=== PATIENT | female | born 1960 | race African-American/Black ===

== ENCOUNTER 2025-02-06 14:24 | Emergency (ER) | payer OTHER, SELFPAY ==
--- NOTE | ~2025-02-06 | CT_ITS ---
CLINICAL HISTORY: diffusely tender left side of abdomen CT ABDOMEN AND PELVIS WITH CONTRAST Comparison: None Findings: There are multiple small pulmonary cysts. No basilar consolidation or pleural effusion. Small hiatal hernia. No acute abnormalities in the solid organs. No urolithiasis. The gallbladder is contracted. Normal caliber abdominal aorta. No bowel obstruction, pneumoperitoneum, or pneumatosis. There are multiple descending and sigmoid colon diverticula. There is mucosal and paracolic edema in the mid to distal descending colon. No free or loculated fluid collection. [id number] colonic stool burden. Nonspecific small bowel feces. Uterine configuration is most suggestive of multiple fibroids. There is a 1.7 cm cystic lesion in the right adnexa that is likely ovarian in etiology. The appendix is identified. No acute appendicitis. The bones are intact. IMPRESSION: 1. Acute diverticulitis in the mid to distal descending colon with no evidence for perforation or abscess. 2. No obstructive or acute inflammatory changes in the genitourinary tract. 3. Probable fibroid uterus. This document has been electronically signed by: Amisha Curtis DO on 02/06/2025 17:18:03
[2025-02-06 14:37] VITALS: BP 118/84; BP 136/78; PULSE 64; PULSE 78; RESP 16; TEMP 36.6; O2SAT 96; O2SAT 98; BMI 29.7
[2025-02-06 15:01] LABS: MANUAL DIFF FLAG NO
[2025-02-06 15:02] LABS: Basophils Percent Auto 0.4 % (0-2); Eosinophils Absolute Auto 0.1 X10*3/uL (0.0-0.4); Eosinophils Percent Auto 1.2 % (0-4); Hematocrit 37.8 % (37.0-47.0); Hemoglobin 12.9 g/dl (12.0-16.0); Imm Gran Abs Auto 0.02 X10*3/uL (0.00-0.03); Imm Gran Pct Auto 0.2 % (0.0-0.4); Lymphocytes Absolute Auto 2.8 X10*3/uL (1.2-4.9); Lymphocytes Percent Auto 34.5 % (20-40); Mean Corpuscular HGB Conc 34.1 g/dl (31.0-35.0); Mean Corpuscular Hemoglobin 30.6 pg (27.0-33.0); Mean Corpuscular Volume 89.6 fL (80.0-98.0); Mean Platelet Volume 9.4 fL (9.4-12.3); Monocytes Absolute Auto 0.9 X10*3/uL (0.1-1.2); Monocytes Percent Auto 10.7 % (2-11); Neutrophils Absolute Auto 4.4 x10*3/uL (2.0-8.3); Platelet Count 256 X10*3/uL (160-400); Red Blood Count 4.22 X10*6/uL (4.20-5.50); Red Cell Distribution Width 13.2 % (11.0-16.0); White Blood Count 8.2 X10*3/uL (4.8-10.8)
[2025-02-06 15:06] LABS: Appearance Urine Clear; Color Urine Yellow; Glucose Urine UA Negative (Negative); Leukocyte Esterase Urine Small (1+) (Negative); Nitrite Urine Negative (Negative); PH 6.5 (5.0-9.0); UMIC TRIGGER UACC YES; Urine Blood Negative (Negative); Urine Ketones Trace mg/dL (Negative); Urine Protein Negative (Neg-Trace)
[2025-02-06 15:27] LABS: Alanine Aminotransferase 25 U/L (0-31); Albumin Level 4.1 g/dL (3.5-5.0); Alkaline Phosphatase 48 U/L (39-117); Anion Gap 11 (12-20); Aspartate Amino Transferase 28 U/L (5-31); Bilirubin Total 0.8 mg/dL (0.0-1.0); Blood Urea Nitrogen 16 mg/dL (9-16); Calcium 9.4 mg/dL (8.4-10.2); Carbon Dioxide 26 mmol/L (22-29); Chloride 106 mmol/L (96-108); Creatinine Clr Calc Pharmacy 64.4; Estimated Glomerular Filt Rate > 60; Glucose Random 81 mg/dL (60-115); Sodium 139 mmol/L (135-145); Total Protein 7.6 g/dL (6.5-8.0)
[2025-02-06 15:31] LABS: Bacteria Urine None Seen (None Seen); Hyaline Casts Urine 0-2 /LPF (0-2); RBC Urine 0-2 /HPF (0-2); Squamous Epithelial Cell Urine 0-2 /HPF (0-2); UACC Culture Trigger YES; WBC Urine 0-5 /HPF (0-5)
--- NOTE | 2025-02-06 15:47 | ED_ITS ---
HPI - Abdominal Pain General Chief Complaint: Abdominal Pain Stated Complaint: ZENAIDA FLANK/BACK PAIN,URGENT CARE PER EMS Time Seen by Provider: 02/06/25 15:25 Source: patient, EMS, RN notes reviewed and old records reviewed Mode of arrival: EMS Limitations: no limitations History of Present Illness ED Provider: Christiane Hernandes PA-C HPI narrative: Patient has sought medical attention in the emergency department today for evaluation of abdominal discomfort. Onset was approximately around 10:00 yesterday she was just sitting down she states it started off as feeling like menstrual cramps like she used to have but without any menses. Approximately 2 hours later pain became much more intense and was located on bilateral lower quadrants. This lasted for approximately 4 hours until it only stayed on the left side. Has been constant since this time weaning with severity especially worse with trying to change positions or moving. She has tried Tylenol for the time and it has only done it intermittently but not all the time. Patient has history of a gastric ulcer several years before in the past and was always been afraid to take NSAIDs again since that time. She is denying any dysuria urgency or frequency has no flank pain. She has no vaginal symptoms denies feeling nauseous and has no vomiting. She had a little bit of a sandwich earlier did not increase pain but also did not make it better. She denies any falls or trauma or pain radiating to her lower legs. No fevers no chills no respiratory symptoms. She has been voiding regularly and denies any increased thirst. Pain is a 6/10 at this time she has not felt pain like this before in the past. Last bowel movement was earlier today she states it was normal she did not notice any blood in it did not make any difference for her abdominal discomfort. She states it feels like it goes from the front of her pelvis rate into the mid back sacrum area. Patient has a history of ongoing back pathology she had an MRI 2 weeks ago she saw a orthopedist who referred her to physical therapy she was supposed to go today but due to her pain she was not able to so came here instead. MRI of the lumbar spine showed degenerative changes only according to patient. Pain Consistency: constant Location: LLQ Severity: severe Quality: cramping, aching and sharp Exacerbating factors: movement Associated symptoms: denies other symptoms Treatments prior to arrival: other (tylenol no change) Related Data Previous Rx's ?Medication ?Instructions ?Recorded ciprofloxacin HCl 750 mg tablet 750 mg PO BID 7 days #14 tabs 02/06/25 metronidazole 500 mg tablet 500 mg PO TID 7 days #21 tabs 02/06/25 Allergies Allergy/AdvReac Type Severity Reaction Status Date / Time Penicillins Allergy Unknown Verified 02/06/25 14:40 Physical Exam ED Vital Signs: Vital Signs - 24 hr 02/06/25 14:37 Temperature 97.8 F Pulse Rate 64 Respiratory Rate 16 Blood Pressure 136/78 Pulse Oximetry 96 Oxygen Delivery Method Room Air BMI result Body Mass Index 29.7 Const General: cooperative, healthy appearing, comfortable, no acute distress and well developed Nutritional Appearance: well nourished and obese Orientation/consciousness: patient oriented x3 Limitations: no limitations HENMT Head: Yes normal to inspection Ears: hearing grossly normal bilaterally General nose exam: Normal external nose present Face and sinus: Yes normal facial exam Mouth: Normal oral and palatal mucosa present, lip normal, tongue normal, oropharynx normal and moist mucous membranes Throat: Yes posterior oropharynx normal Eyes Periorbital: periorbital findings normal Eyelids: Yes eyelids normal Conjunctivae: conjunctivae normal Sclerae: sclerae normal Corneas: corneas normal Neck Neck: Yes full ROM Resp Effort & Inspection: normal respiratory effort and able to speak in complete sentences Auscultation: clear to auscultation bilaterally Cardio Jugular venous distension: no JVD Rate: regular rate Rhythm: regular rhythm GI Inspection: Yes distended (obese lower abdomen slightly distended but not firm) Palpation (GI): Soft to palpation and Tenderness to palpation present (GI) in the LLQ, obturator sign positive (negative) and psoas sign positive (positive) Auscultation: normal bowel sounds Rectal Exam - Female: deferred General: Yes no CVA tenderness Back/Spine/Pelvis Back: no CVA tenderness Skin General skin exam: no rashes or lesions noted Rashes: no rashes Wounds: no wounds Neuro General: patient oriented x3 Extrem General: Yes normal to inspection Medical Decision Making Medical Decision Making MDM Narrative: Well appearing patient presenting to ED for evaluation of lower abdominal pain since yesterday. Intermittent nausea but not for several days. Abd labs and imaging was obtained due to LLQ being tender. No guarding, pain is controlled at this time and no urinary complaints. Vitals reassuring, no fevers. Abd labs reassuring; no leukocytosis or kidney dysfunction. CT scan with evidence of diverticulitis without perforation. No hepatobiliary diseaes. CRP elevated but expected in setting of CT findings. Patient has diverticulitis that is amenable to oral antibiotics. Discussed was had in regards to mild cases sometimes going on fluid diet only and no abx. At this is first occurence, will prescribed abx. 'Severe' PCN allergy- would have considered Aug alone. Patient has no signs of perforation. Patient?s symptoms not typical for other emergent causes of abdominal pain such as, but not limited to, appendicitis, abdominal aortic aneurysm, surgical biliary disease, acute coronary syndrome. Patient will be discharged with strict return precautions and follow up with primary MD within 12-24 hours for further evaluation. Patient understands that they may require admission and IV antibiotics and possibly surgery if they do not improve with oral antibiotics. Differential Diagnosis Differential Diagnoses: The differential diagnosis associated with the presentation includes See above Admission/Observation Consideration of admission/observation: Escalation of care including admission/observation considered Patient would have been admitted to the hospital had her work up and clinical presentation had any findings where hospital admission was warranted. Lab Data MDM Lab Attestation statement: I reviewed the patient's lab results. see above 02/06/25 14:53 02/06/25 14:53 Labs: Lab Results 02/06/25 02/06/25 Range/Units 14:53 Unknown WBC 8.2 (4.8-10.8) X10*3/uL RBC 4.22 (4.20-5.50) X10*6/uL Hgb 12.9 (12.0-16.0) g/dl Hct 37.8 (37.0-47.0) % MCV 89.6 (80.0-98.0) fL MCH 30.6 (27.0-33.0) pg MCHC 34.1 (31.0-35.0) g/dl RDW 13.2 (11.0-16.0) % Plt Count 256 (160-400) X10*3/uL MPV 9.4 (9.4-12.3) fL Immature Gran % (Auto) 0.2 (0.0-0.4) % Neut % (Auto) 53.0 (45-73) % Lymph % (Auto) 34.5 (20-40) % Andrew % (Auto) 10.7 (2-11) % Eos % (Auto) 1.2 (0-4) % Baso % (Auto) 0.4 (0-2) % Lymph # (Auto) 2.8 (1.2-4.9) X10*3/uL Andrew # (Auto) 0.9 (0.1-1.2) X10*3/uL Eos # (Auto) 0.1 (0.0-0.4) X10*3/uL Baso # (Auto) 0.0 (0.0-0.2) X10*3/uL Abs Immat Gran (auto) 0.02 (0.00-0.03) X10*3/uL Absolute Neuts (auto) 4.4 (2.0-8.3) x10*3/uL Absolute Nucleated RBC 0.000 (0.0-0.012) X10*3/uL Nucleated RBC % (auto) 0.0 (0.0-0.2) /100WBC ESR Cancelled Sodium 139 (135-145) mmol/L Potassium 4.0 (3.3-5.1) mmol/L Chloride 106 (96-108) mmol/L Carbon Dioxide 26 (22-29) mmol/L Anion Gap 11 L (12-20) BUN 16 (9-16) mg/dL Creatinine 0.87 (0.5-1.4) mg/dL Estim Creat Clear Calc 64.4 Estimated GFR > 60 Random Glucose 81 (60-115) mg/dL Calcium 9.4 (8.4-10.2) mg/dL Total Bilirubin 0.8 (0.0-1.0) mg/dL AST 28 (5-31) U/L ALT 25 (0-31) U/L Alkaline Phosphatase 48 (39-117) U/L C-Reactive Protein 3.17 H (< or = 0.50) mg/dL Total Protein 7.6 (6.5-8.0) g/dL Albumin 4.1 (3.5-5.0) g/dL Lipase 36 (8-78) U/L Urine Color Yellow Urine Appearance Clear Urine pH 6.5 (5.0-9.0) Ur Specific [place] 1.020 (1.005-1.025) Urine Protein Negative (Neg-Trace) mg/dL Urine Glucose (UA) Negative (Negative) mg/dL Urine Ketones Trace (Negative) mg/dL Urine Blood Negative (Negative) Urine Nitrite Negative (Negative) Ur Leukocyte Esterase Small (1+) H (Negative) Urine RBC 0-2 (0-2) /HPF Urine WBC 0-5 (0-5) /HPF Ur Squamous Epith Cells 0-2 (0-2) /HPF Urine Bacteria None Seen (None Seen) Hyaline Casts 0-2 (0-2) /LPF Independent Interpretation I performed an independent interpretation of an: CT Scan Interpretation: see above Independent Historian Clinical information obtained from an independent historian. History obtained from or confirmed by: Spouse and Other (daughter in room) Tests considered The following testing was considered but not selected: Pelvic Ultrasound but no vaginal sxs or ovarian tenderness concerning for ovarian torsion Prescription Management I considered prescription management with: Pain Medication and Antibiotic Medications Administered Discontinued Medications Generic Name Dose Route Start Last Admin Trade Name Freq PRN Reason Stop Dose Admin Iohexol 100 ml 02/06/25 16:37 02/06/25 16:37 Iohexol 350 Mg/Ml 100 Ml Infus..Btl IV 02/06/25 16:38 85 ml ONCE ONE Administration Morphine Sulfate 1 mg 02/06/25 15:45 02/06/25 18:14 Morphine Sulfate 2 Mg/Ml Cartridge IM 02/06/25 15:46 Not Given ONCE ONE Protocol Discharge Plan Discharge Clinical Impression: Diverticulitis Patient Disposition: Home, Self-Care Instructions: Diverticulitis (ED), Colectomy Diet (ED) Additional Instructions: CT exam with evidence of diverticulitis, this will be treated with antibiotics. Your case is mild. There is evidence other suggest that mild cases can be treated with a liquid diet only and no antibiotics or rales he has never been treated for this before we will initiate antibiotics and recommend General surgery follow-up Be sure to finish the full course. Take probiotics with antibiotics. Probiotics have been shown to reduce antibiotic associated diarrhea and other complications. There have been studies done on Culturelle and Florastor and these products can be purchased over the counter at the pharmacy. Our infectious disease specialist also recommends [employer] Tono, a liquid yogurt that can be found in any supermarket in the milk department. This Recommendation is for 5 ounces 3 times a day by at least 2 hours from the oral antibiotic dose. Consider clear liquid diet until her symptoms have begun to resolve, this will help to rest your bowel, see attached information. Return the emergency department if you develop worsening symptoms including severe nausea, inability to tolerate anything by mouth, high fever, severe abdominal pain, bright red blood in your stool. Prescriptions: New ciprofloxacin HCl 750 mg tablet 750 mg PO BID 7 Days Qty: 14 0RF metronidazole 500 mg tablet 500 mg PO TID 7 Days Qty: 21 0RF Referrals: Kurtis Lee PA-C [Physician Senior Asic Design Engineer] - 1 week Group,Bubba Gant [Physician] - 1 week Stand Alone Forms: Work/School Release Interventions: ED Discharge Assessment Last Done: 02/06/25 18:19 Discharge Date/Time: 02/06/25 19:01 Print Language: Azeri
[2025-02-06 16:14] LABS: C Reactive Protein 3.17 mg/dL (< or = 0.50); Lipase 36 U/L (8-78)
[2025-02-06] MEDS: iohexoL 350 MG/ML 100 ML INFUS..BTL IV (16:37)
[2025-02-06 16:59] VITALS: BP 140/75; PULSE 81; RESP 18; O2SAT 98
--- OUTSIDE RECORDS SUMMARY | 2025-02-06 17:37 | XMS_ITS | Encounter Summary ---
Author Organization [employer] Address [address] [facility] 7 [place] [address] Care Team Providers Care Hot Roll Laminator Name Role Phone Tamar Tucker Primary Care Provider Tamar Tucker Unavailable [phone] FranksTyra Unavailable [phone] Heather Marrero Unavailable Encounter Details Date Type Department Care Team (Late st Contact Info) Description 10/18/[address] [address] Tamar Tucker FNP [address] [place] [id number] Social History Tobacco Use Types Packs/Day Years Used Date Smoking Tobacco: Never Assessed Comments Unknown Sex and Gender Information Value Date Recorded Sex Assigned at Choose not to disclose 9:05 AM EDT Legal Sex Female 6:21 PM EDT Gender Identity Choose not to disclose 6:21 PM EDT Sexual Orientation Straight 06/28/2024 11 :08 AM EDT documented as of this encounter Plan of Treatment Not on file documented as of this encounter Visit Diagnoses Not on filedocumented in this encounter Care Teams Hot Roll Laminator Relationship Specialty Start Date End Date Tamar Tucker FNP PCP - General Family Medicine 08/26/22 Tamar Tucker FNP Family Medicine 08/26/22 Tyra Franks [address] [place] [address] 07/17/23 07/02/24 Heather Marrero [address] [place] [address] 07/26/23 documented as of this encounter
--- OUTSIDE RECORDS SUMMARY | 2025-02-06 17:37 | XMS_ITS | Data Portability ---
Author Organization [facility], [facility] Address [address] [place] [address] Care Team Providers Care Holter Technician Name Role Phone [facility] Care Provider Assessment No assessment recorded. Plan of Treatment Reminders Order Date Submit Date Provider Last Modified By Organization Details Last Modified Time Details Appointments None recorded. Lab SARS CoV 2 (COVID-19) Ag, QL, IA, upper respiratory specimen 2023 [facility]IN [facility], [address] [place] [address], [phone], 4 13:32:53 rapid flu (A+B) 2023 024 SATIN [facility], [address] [place] [address], [phone], 4 13:32:36 Referral None recorded. Procedures None recorded. Surgeries None recorded. Imaging None recorded. Medication Orders fluticasone propionate 50 mcg/actuati on nasal spray,suspe nsion 2023 024 [facility] [address], [address] [place], [address], 4 13:31:56 Patient TargetsNo targets recorded. Patient InstructionsNo instructions recorded. Reason for Referral None Reported. Results Created Date Observation Date Name Description Value Unit Range Abnormal Flag Note LastModifiedBy Organization Detail LastModifiedTime 12/20/19 24 12/20/2023 rapid flu (A+B) Unknown Analyte negati ve Not Available le yr [address] [place], [address], 12/20/2023 13:17:57 12/20/19 24 12/20/2023 rapid flu (A+B) Unknown Analyte negati ve Not Available [facility] [address] [place], [address], 12/20/2023 13:17:57 12/20/19 24 12/20/2023 rapid flu (A+B) Unknown Analyte yes Not Available [facility] itzel [address] [place], [address], 12/20/2023 13:17:57 12/20/19 24 12/20/2023 SARS CoV 2 (COVI D-19) Ag, QL, IA, upper respi rator y speci men Unknown Analyte negati ve Not Available [facility] [address] [place], [address], 12/20/2023 13:16:05 12/20/19 24 12/20/2023 SARS CoV 2 (COVI D-19) Ag, QL, IA, upper respi rator y speci men Unknown Analyte yes Not Available [facility] itzel [address] [place], [address], 12/20/2023 13:16:05 Result Notes None recorded. Problems Name Problem SNOMED Code Status Onset Date Resolution Date Notes Provider Name and Address Organization Details Recorded Time Hypothyroidism 22686136 Active Hope tinoco, [place] - [facility] 4 13:15:03 Hypercholestero lemia 89734243 Active Hope De La Torre null, [place] - [facility] 4 13:15:11 Problem Notes None recorded. Medical Equipment None Reported. Allergies No known drug allergies Medications Name Sig Start Date Stop Date Status Note LastModified by Organization Details LastModified Time atorvastatin 20 mg tablet TAKE 1 TABLET BY MOUTH ONCE DAILY active Not Available Not Available No t Available sulfamethoxa zole 800 mg-trimethop rim 160 mg tablet TAKE 1 TABLET BY MOUTH TWICE DAILY FOR 5 DAYS active Not Available Not Available No t Available fluticasone propionate 50 mcg/actuatio n nasal spray,suspen wilbur Ravalli 2 sprays every day by intranasal route for 90 days. 2023 active Not Available Not Available Not Avai lable cyclobenzapr ine 5 mg tablet TAKE 1 TABLET BY MOUTH NEEDED IN THE MORNING AT NOON AND AT BEDTIME FOR MUSCLE SPASMS active Not Available Not Available No t Available atorvastatin active Not Available Not Available Not Available levothyroxin e active Not Available Not Available Not Available Vitals Date Recorded Body height Body mass index (BMI) Body weight Body temperature Respiratory rate Oxygen saturation Oxygen saturation in Arterial blood by Pulse oximetry Heart rate Systolic blood pressure Diastolic blood pressure Provider Name and Address Organization Details Last Updated DateTime 162.56 cm 27.5 kg/m2 77853.7 8 g 100.6 [degF] 18 /min 99 % 99 % 81 /min 132 mm[Hg] 84 mm[Hg] Hope Noble [facility] 13:17:51 Social History Question Answer Notes LastModified by Organizat ion Details LastModified Time Tobacco Smoking Status Never Smoker RUI Chavarria [facility] 12/20/2023 13:15:28 What Is Your Level Of Alcohol Consumption? None [email or web address] Information not available 12/20/2023 Have You Had A Flu Shot This Season? Yes [email or web address] Information not available 12/20/2023 What Was The Date Of Your Most Recent Tobacco Screening? 12/20/2023 [email or web address] Information not available 12/20/2023 Do You Use Any Illicit Or Recreational Drugs? No Information not available 12/20/2023 Have You Recently Traveled Abroad? Yes [place]elled To [place] 12/05 [email or web address] Information not available 12/20/2023 Do You Or Have You Ever Used Any Other Forms Of Tobacco Or Nicotine? No [email or web address] Information not available 12/20/2023 Sex: Unknown Functional Status None recorded. Mental Status None recorded. Family History Relationship Description Onset Age of this Age Resolved Age Notes LastModified by Organization Details LastModified Time Father No current problems or disability [email or web address] Not available 12/20 13:15:15 Mother No current problems or disability [email or web address] Not available 12/20 13:15:15 Medical History No medical history recorded. Gynecological History Statement/Question Response Is there any chance of ? No LMP N/A Obstetrics History GPAL:G 0 P 0 0 0 0 Past Encounters Encounter ID Performer Location Encounter Start Date Encounter Closed Date Diagnosis/Indication Diagnosis SNOMED-CT Code Diagnosis ICD10 Code Diagnosis Note [id number] [address] [place] [address] 05/25/2020 19:23:30 05/25/2020 19:56:49 [id number] [address] [place] [address] 07/28/2018 13:24:28 07/28/2018 14:03:46 [id number] RUI Capps [address] [place] [address] 12/20/2023 13:03:41 12/20/2023 13:36:26 Influenza-like illness 31610439 B34.9 Patient presented with symptoms of upper respirator y infection. Advised to drink plenty of fluids, run a cool-mist humidifier in room at night, gargle salt water for sore throat, and get plenty of rest. Patient should avoid over-exert ion and reduce exposure to irritants such as smoke, cold, dry air, and dust.Treat ment currently involves symptomati c relief. Nasal sprays like nasonex and flonase (or generic) as well as neti pot to help clear sinuses Patient may take acetaminop hen or ibuprofen as directed to reduce fever and body aches.Anti histamine and decongesta nt usage was discussed and recommenda tions made.Jeanette fernandez understood these instructio ns and will follow up in the office in 10 days to 2 weeks if symptoms not improving. ER if any shortness of breath/vj st pain or worsening. Thank you for using [facility] today, please feel free to contact our office if you have any questions or concerns. Health Concerns Section Related Observation LastModified by Organization Detai ls LastModified Time None Recorded Concern Status LastModified by Organization Details LastModified Time None Recorded Advance Directives Directive None Recorded Payers Encounter Date Sequence Insurance Name Policy Number Policy Holly Covered Member ID Holly Member ID Guarantor Name 12/20/2023 1 AI [id number] Korina Gramajo [id number] Teresa Gramajo Notes Date Note Type Note Provider Name and Address Organization Details Recorded Time 12/20/2023 text/html 63 y/o female with cough, congestion, low grade fevers for the past 5 days. RUI Capps [address] [place], [address], [place] - [facility] 12/20/2023 13:34:03 OBGyn Episode No OBEpisode recorded.
--- OUTSIDE RECORDS SUMMARY | 2025-02-06 17:37 | XMS_ITS | Encounter Summary ---
Author Organization [employer] Address [address] [facility] [address] [place] [address] Care Team Providers Care Lime Spreader Name Role Phone Tamar Tucker Primary Care Provider [phone] Tamar Tucker Unavailable [phone] Heather Marrero Unavailable Encounter Details Date Type Department Care Team ([facility] st Contact Info) Description 08/15/[address] [address] Tamar Tucker FNP [address] [place] [address] Social History Tobacco Use Types Packs/Day Years Used Date Smoking Tobacco: Never Smokeless Tobacco: Never Alcohol Use Standard Drinks/Week Comments Never 0 (1 standard drink = 0.6 oz pur e alcohol) Depression Answer Date Recorded Patient Health Questionnaire-9 Score 1 10/04/2023 Patient Health Questionnaire-9 Score 1 10/04/2023 Last PHQ-9: Questionnaire Data Not on file 1 12/05/2022 Housing Stability Answer Date Recorded What is your housing situation today? I have berk[place] auguste 10/04/[address] you li ve. Do you have problems with any of the following? No or not working smoke detectors 10/04/2023 Food Insecurity Answer Date Recorded Within the past 12 months, y ou worried that your food would run out before you got money to buy more: Never True 2022 Within the past 12 months,th e food you bought just didn't last and you didn't have enough money to get more: Sometimes True 10/04/2023 Transportation Answer Date Recorded In the past 12 months, has l ack of transportation kept you from medical appts, meetings, work or from getting things needed for daily living? Yes, it has kept me from medical appointments or getting medications. 10/04/2023 Utilities Answer Date Recorded In the past 12 months, has t he electric, gas, oil or water company threatened to shut off services in your home? No 10/04/2023 Depression Answer Date Recorded Patient Health Questionnaire-2 Score 0 10/04/2023 Comments Unknown Sex and Gender Information Value Date Recorded Sex Assigned at Choose not to disclose 9:05 AM EDT Legal Sex Female 6:21 PM EDT Gender Identity Choose not to disclose 6:21 PM EDT Sexual Orientation Straight 06/28/2024 11 :08 AM EDT documented as of this encounter Miscellaneous Notes * Telephone Encounter - Becki Forman - 08/16/2024 7:45 AM EDT Orders faxed * Telephone Encounter - Jon Kelly - 08/15/2024 3:32 PM EDT Patient would like her lab orders sent to [facility] if possible so she can have them done closer to where she lives. Her call back number is [phone] documented in this encounter Plan of Treatment Not on file documented as of this encounter Visit Diagnoses Not on filedocumented in this encounter Additional Health Concerns Assessment Noted Time PHQ-9 Depression Total Score: 1 10/04/20 23 2:21 PM EST documented as of this encounter Care Teams Lime Spreader Relationship Specialty Start Date End Date Tamar Tucker FNP PCP - General Family Medicine 08/26/22 Tamar Tucker FNP Family Medicine 08/26/22 Heather Marrero [address] [place] [id number] 07/26/23 documented as of this encounter
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
--- OUTSIDE RECORDS SUMMARY | 2025-02-06 17:37 | XMS_ITS | Encounter Summary ---
Author Organization [employer] Address [address] [facility] [address] 7t [place] [address] Care Team Providers Care Heel Scourer Name Role Phone Tamar Tucker Primary Care Provider [phone] Tamar Tucker Unavailable [phone] Heather Marrero Unavailable Encounter Details Date Type Department Care Team (Late st Contact Info) Description 01/06/[address] [phone] Tamar Tucker FNP [address] [place] [address] [phone] Social History Tobacco Use Types Packs/Day Years [...] encounter Miscellaneous Notes * Telephone Encounter - Shauna Young - 01/06/2025 1:15 PM EDT Task sent from to schedule [facility]UP appt about patients knee. I called Teresa, she states she was already seen by tamar, looks like on 12/18. She doesn't think she needs another appointment right now, as she is trying to get an MRI done but she is battling with her insurance company because they will not pay for it. She is going to call her insurance company once more to get more information and will call me back. I did advise that in the mean time we can schedule another follow up appointment with SB to discuss further treatment plan but she said she wants to speak to her social insurance adviser first then will call back with what she would like to do. documented in this encounter Plan of Treatment Not on file documented as of this encounter Visit Diagnoses Not on filedocumented in this encounter Additional Health Concerns Assessment Noted Time PHQ-9 Depression Total Score: 1 10/04/20 23 2:21 PM EST documented as of this encounter Care Teams Heel Scourer Relationship Specialty Start Date End Date Tamar Tucker FNP PCP - General Family Medicine 08/26/22 Tamar Tucker FNP Family Medicine 08/26/22 Heather Marrero [address] [place] [address] 07/26/23 documented as of this encounter
--- OUTSIDE RECORDS SUMMARY | 2025-02-06 17:37 | XMS_ITS | Encounter Summary ---
Author Organization [employer] Address [address] [facility] 7t [place] [address] Care Team Providers Care Hot Stone Setter Name Role Phone Tamar Tucker Primary Care Provider [phone] Tamar Tucker Unavailable [phone] Heather Marrero Unavailable Encounter Details Date Type Department Care Team ([facility] st Contact Info) Description 08/16/[address] [phone] Tamar Tucker FNP [address] [place] [address] Social History Tobacco Use Types Packs/Day [...] Telephone Encounter - Becki Forman - 08/16/2024 3:10 PM EDT Refaxed with MORE signature * Telephone Encounter - Kendra Jenkins - 08/16/2024 11:27 AM EDT Is at [facility] for labs, please have provider melanie the orders and resend as theywere not singed. documented in this encounter Plan of Treatment Not on file documented as of this encounter Visit Diagnoses Not on filedocumented in this encounter Additional Health Concerns Assessment Noted Time PHQ-9 Depression Total Score: 1 10/04/20 23 2:21 PM EST documented as of this encounter Care Teams Hot Stone Setter Relationship Specialty Start Date End Date Tamar Tucker FNP PCP - General Family Medicine 08/26/22 Tamar Tucker FNP Family Medicine 08/26/22 Heather Marrero [address] [place] [address] 07/26/23 documented as of this encounter
--- OUTSIDE RECORDS SUMMARY | 2025-02-06 17:38 | XMS_ITS | Encounter Summary ---
Author Organization [employer] Address [address] [place] [address] 7 [place] [address] Care Team Providers Care Cobbler Apprentice Name Role Phone Tamar Tucker Primary Care Provider [phone] Tamar Tucker Unavailable [phone] Tyra Franks Unavailable [phone] BassamgiovaniHeather Unavailable Encounter Details Date Type Department Care Team (Late st Contact Info) Description 09/20/2022 Abstract [facility] [address] [place] [phone] Audelia Lange, RN [address] [place] [phone] Social History Tobacco Use Types Packs/Day Years [...] on filedocumented in this encounter Care Teams Cobbler Apprentice Relationship Specialty Start Date End Date Tamar Tucker FNP PCP - General Family Medicine 08/26/22 Tamar Tucker FNP Family Medicine 08/26/22 Tyra Franks [address] [place] [address] 07/17/23 07/02/24 Heather Marrero [address] [place] [address] 07/26/23 documented as of this encounter
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
--- OUTSIDE RECORDS SUMMARY | 2025-02-06 17:38 | XMS_ITS | Encounter Summary ---
Author Organization [employer] Address [address] [facility] 7t [place] [address] Care Team Providers Care Rn Patient Services Name Role Phone Tamar Tucker Primary Care Provider [phone] Tamar Tucker Unavailable Heather Marrero Unavailable Encounter Details Date Type Department Care Team ([facility] st Contact Info) Description 11/07/2024 Telephone [facility] [address] [place] [address] Tamar Tucker FNP [address] [place] [address] [phone] Social History Tobacco Use Types Packs/Day Years [...] housing situation today? I have berkley auguste 10/04/[address] you [...] from medical appointments or getting medications. 10/04/2023 Intimate Partner Violence Answer Date R ecorded [...] encounter Miscellaneous Notes * Telephone Encounter - Cathy Bergeron - 11/19/2024 11:09 AM EST See other task for updates. We are still trying to get letter from bar staff * Telephone Encounter - Amy Christopher - 11/07/2024 3:41 PM EST Patient lm on vmail that she would like a call regarding the billing * Telephone Encounter - Cathy Bergeron - 11/07/2024 11:56 AM EST Spoke Les, He said patient has exhausted the $2,000 for PIP, asked him to fax us a letter stating it is exhausted, He wasn't wanting to fax us anything. I spoke to Maria Del Rosario and she is going to give him a call after to ask him to send the letter * Telephone Encounter - Adriana Gomes - 11/07/2024 11:14 AM EST Les is returning a call about patient 2 MRIs [employer] does not auth any tests those have to go through their private ins call Les if you have any other questions [phone] [facility] claim # [id number] documented in this encounter Plan of Treatment Not on file documented as of this encounter Visit Diagnoses Not on filedocumented in this encounter Additional Health Concerns Assessment Noted Time PHQ-9 Depression Total Score: 1 10/04/20 23 2:21 PM EST documented as of this encounter Care Teams Rn Patient Services Relationship Specialty Start Date End Date Tamar Tucker FNP PCP - General Family Medicine 08/26/22 Tamar Tucker FNP Family Medicine 08/26/22 Heather Marrero [address] [place] [phone] 07/26/23 documented as of this encounter
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
[2025-02-06 18:19] VITALS: BP 136/78; PULSE 78; RESP 18; TEMP 36.4; O2SAT 98
== END 2025-02-06 19:01 | disposition home or self-care (01) ==
PROVIDERS: Physician Assistant Medical; Emergency Provider Emergency Medicine Emergency Medical Services
DX: K57.32 Diverticulitis of large intestine without perforation or abscess without bleeding (principal); R10.30 Lower abdominal pain, unspecified; M54.50 Low back pain, unspecified; Z79.899 Other long term (current) drug therapy
CPT/HCPCS: 36415; 74177; 80053; 81001; 81003; 83690; 85025; 86140; 87086; 99284; Q9967

== ENCOUNTER → 2025-02-06 15:45 | Outpatient (BNV) | payer OTHER, SELFPAY | PROVIDERS: Emergency Provider Emergency Medicine Emergency Medical Services; Visit Provider Radiology Diagnostic Radiology | DX: K57.32 Diverticulitis of large intestine without perforation or abscess without bleeding (principal) | CPT/HCPCS: 74177 ==

== ENCOUNTER 2025-02-12 07:46 | Outpatient (AMB) | payer OTHER, SELFPAY ==
--- OUTSIDE RECORDS SUMMARY | 2025-02-12 07:49 | XMS_ITS | Encounter Summary ---
Author Organization [employer] Address [address] [employer] 7t [place] [address] Care Team Providers Care Shift Boss Name Role Phone Tamar Tucker Primary Care Provider [phone] Tamar Tucker Unavailable [phone] Heather Marrero Unavailable Encounter Details Date Type Department Care Team ([facility] Contact Info) Description 08/16/[address] [address] Tamar Tucker FNP [address] [place] [address] Social History Tobacco Use Types Packs/Day [...] 08/16/2024 11:27 AM EDT Is at the [facility] for labs, please have provider melanie the orders and resend as theywere not singed. documented in this encounter Plan of Treatment Not on file documented as of this encounter Visit Diagnoses Not on filedocumented in this encounter Additional Health Concerns Assessment Noted Time PHQ-9 Depression Total Score: 1 10/04/20 23 2:21 PM EST documented as of this encounter Care Teams Shift Boss Relationship Specialty Start Date End Date Tamar Tucker FNP PCP - General Family Medicine 08/26/22 Tamar Tucker FNP Family Medicine 08/26/22 Heather Marrero [address] [place] [address] 07/26/23 documented as of this encounter
--- OUTSIDE RECORDS SUMMARY | 2025-02-12 07:49 | XMS_ITS | Encounter Summary ---
Author Organization [employer] Address [address] [place] [address] 7 [place] [address] Care Team Providers Care Split Leather Department Supervisor Name Role Phone Tamar Tucker Primary Care Provider [phone] Tamar Tucker Unavailable [phone] Tyra Franks Unavailable [phone] BassamgiovaniHeather Unavailable Encounter Details Date Type Department Care Team (Late st Contact Info) Description 09/20/2022 Abstract [facility] [address] [place] [phone] Audelia Lange, RN [address] [place] [address] Social History Tobacco Use Types Packs/Day Years [...] on filedocumented in this encounter Care Teams Split Leather Department Supervisor Relationship Specialty Start Date End Date Tamar Tucker FNP PCP - General Family Medicine 08/26/22 Tamar Tucker FNP Family Medicine 08/26/22 Tyra Franks [address] [place] [address] 07/17/23 07/02/24 Heather Marrero [address] [place] [address] 07/26/23 documented as of this encounter
--- OUTSIDE RECORDS SUMMARY | 2025-02-12 07:49 | XMS_ITS | Encounter Summary ---
Author Organization [employer] Address [address] 7t [place] [address] Care Team Providers Care Ware Tester Name Role Phone Tamar Tucker Primary Care Provider [phone] Tamar Tucker Unavailable [phone] Heather Marrero Unavailable Encounter Details Date Type Department Care Team (Late st Contact Info) Description 01/06/[address] [phone] Tamar Tucker FNP [address] [place] [address] [phone] Social History Tobacco Use Types Packs/Day Years [...] said she wants to speak to her insurance marketing rep first then will call back with what she would like to do. documented in this encounter Plan of Treatment Not on file documented as of this encounter Visit Diagnoses Not on filedocumented in this encounter Additional Health Concerns Assessment Noted Time PHQ-9 Depression Total Score: 1 10/04/20 23 2:21 PM EST documented as of this encounter Care Teams Ware Tester Relationship Specialty Start Date End Date Tamar Tucker FNP PCP - General Family Medicine 08/26/22 Tamar Tucker FNP Family Medicine 08/26/22 Heather Marrero [address] [place] [address] 07/26/23 documented as of this encounter
--- OUTSIDE RECORDS SUMMARY | 2025-02-12 07:49 | XMS_ITS | Clinical Summary ---
Author Organization [employer] Address [address] [facility] 7t [place] [address] Care Team Providers Care Art Therapy Specialist Name Role Phone Tamar Tucker Primary Care Provider [phone] Tamar Tucker Unavailable [phone] Heather Marrero Unavailable Allergies Active Allergy Reactions [...] Encounters Date Type Department Care Team Description 02/11/2025 Patient Outreach [address] [place] [address] Luther King LPN Ed f/u 02/04/[address] [address] Tamar Tucker FNP 01/09/[address] [phone] Tamar Tucker FNP 01/06/[address] [address] Tamar Tucker FNP 01/06/[address] [address] Breanne Saucedo NP 12/18/2024 9:00 AM EST Office Visit [address] [address] Tamar Tucker FNP Chronic pain of left knee (Primary Dx) 12/18/[address] [address] Tamar Tucker FNP 12/18/[address] [phone] Tamar Tucker FNP [facility] - Outreach 12/18/[address] [phone] Tamar Tucker FNP 11/22/[address] [phone] Tamar Tucker FNP from Last 3 Months [...] ce Phillip Mosley MD [facility] [place] PROCEDURES Final Res ult * (ABNORMAL) Lipid Panel, Standard (10/04/2023 2:06 PM EST) Cholesterol, Total 235(H) (<200) MG/DL [facility] Triglyceride (mg/dL) in Serum/Plasma 114 (<150) MG/DL [facility] HDL Cholesterol 64 (>39) MG/DL [facility] LDL Cholesterol, Calculated 148(H) (0-130) MG/DL [facility] Non HDL Chol. (LDL+VLDL) 171(H) (<160) MG/DL [facility] Comment: Testing performed or reported by [facility], a Service of [facility], [address] [place] [address] Jose Crystal MD, [employer] [facility]# [id number] Blood Venous blood specimen / Unknown 10/04/2023 2:06 PM EST 10/04/2023 2:11 PM EST Tamar Tucker AUTO BODY REPAIR TECHNICIAN LAB BLOOD ORDERABLES Final Res ult [address] [address] * Mammography (09/23/2022) Pathologist [facility] Mammogram BIRADS 1 Anatomical Region Laterality Modality Other Historical Provider HEALTH MAINTENANCE Final Result * Pap Smear (09/16/2022) [facility] Pap smear NILM, HPV neg Historical Provider HEALTH MAINTENANCE Final Result * THIN PREP PAP, WITH HPV, GENOTYPE IF HPV+ (09/13/2022 10:30 AM EST) [facility] See Report CONVERTED LEGACY LABS 09/13/2022 10:3 0 AM EST Historical Provider LAB CYTOLOGY ORDERABLES F inal Result CONVERTED LEGACY LABS * Colonoscopy (11/25/2020) [facility] Colonoscopy Repeat 7 yrs Historical Provider HEALTH MAINTENANCE Final Result * HM Hepatitis C Antibody (01/13/2017) Hepatitis C Antibody Nonreactive Blood Historical Provider HEALTH MAINTENANCE Final Result from Last 3 Months or Most Recently Relevant to Health Maintenance Insurance [facility] [employer] [facility] Care Teams Art Therapy Specialist Relationship Specialty Start Date End Date Tamar Tucker FNP PCP - General Family Medicine 08/26/22 Tamar Tucker FNP Family Medicine 08/26/22 Heather Marrero [address] [place] [address] 07/26/23
--- OUTSIDE RECORDS SUMMARY | 2025-02-12 07:49 | XMS_ITS | Encounter Summary ---
Author Organization [employer] Address [address] [facility] 7t [place] [address] Care Team Providers Care Facing End Trimmer Name Role Phone Tamar Tucker Primary Care Provider [phone] Tamar Tucker Unavailable [phone] Heather Marrero Unavailable Encounter Details Date Type Department Care Team ([facility] st Contact Info) Description 08/30/[address] [address] Tamar Tucker FNP [address] [place] [address] [phone] Social History Tobacco Use Types Packs/Day Years [...] PM EST Referrals are being billed though [facility], we have been waiting for chronometer adjuster * Telephone Encounter - Kendra Jenkins - 08/30/2024 12:01 PM EDT The xray and physical therapy referrals should be sent to [employer] insurance not to [facility], they are the result of an accident and once she surpasses the $8000 for that they can then be billed to [facility] but in the meantime, [employer] has to be the one to authorize . Please advise patient, she statesthat [facility] has not gotten any referrals. [phone] documented in this encounter Plan of Treatment Not on file documented as of this encounter Visit Diagnoses Not on filedocumented in this encounter Additional Health Concerns Assessment Noted Time PHQ-9 Depression Total Score: 1 10/04/20 23 2:21 PM EST documented as of this encounter Care Teams Facing End Trimmer Relationship Specialty Start Date End Date Tamar Tucker FNP PCP - General Family Medicine 08/26/22 Tamar Tucker FNP Family Medicine 08/26/22 Heather Marrero [address] [place] [address] 07/26/23 documented as of this encounter
--- OUTSIDE RECORDS SUMMARY | 2025-02-12 07:49 | XMS_ITS | Data Portability ---
Author Organization [employer] [facility] Address [address] [place] [address] Care Team Providers Care Ross Carrier Driver Name Role Phone [facility] Care Provider Assessment No assessment recorded. Plan of Treatment Reminders Order Date Submit Date Provider Last Modified By Organization Details Last Modified Time Details Appointments None recorded. Lab SARS CoV 2 (COVID-19) Ag, QL, IA, upper respiratory specimen 2023 [place] [facility], [address] [place] [address], [phone], 4 13:32:53 rapid flu (A+B) 2023 024 [place] [facility], [address] [place] [address], [phone], 4 13:32:36 Referral None recorded. Procedures None recorded. Surgeries None recorded. Imaging None recorded. Medication Orders fluticasone propionate 50 mcg/actuati on nasal spray,suspe nsion 2023 024 [facility], [address] [place], [address], 4 13:31:56 Patient TargetsNo targets recorded. Patient InstructionsNo instructions recorded. Reason for Referral None Reported. Results Created Date Observation Date Name Description Value Unit Range Abnormal Flag Note LastModifiedBy Organization Detail LastModifiedTime 12/20/19 24 12/20/2023 rapid flu (A+B) Unknown Analyte negati ve Not Available le yr [address] [place], [address], 12/20/2023 13:17:57 12/20/19 24 12/20/2023 rapid flu (A+B) Unknown Analyte negati ve Not Available [facility] [address] [place], [address], 12/20/2023 13:17:57 12/20/19 24 12/20/2023 rapid flu (A+B) Unknown Analyte yes Not Available [facility] itzel [address] [place], [address], 12/20/2023 13:17:57 12/20/19 24 12/20/2023 SARS CoV 2 (COVI D-19) Ag, QL, IA, upper respi rator y speci men Unknown Analyte negati ve Not Available [facility] [address] [place], [address], 12/20/2023 13:16:05 12/20/19 24 12/20/2023 SARS CoV 2 (COVI D-19) Ag, QL, IA, upper respi rator y speci men Unknown Analyte yes Not Available [facility] itzel [address] [place], [address], 12/20/2023 13:16:05 Result Notes None recorded. Problems Name Problem SNOMED Code Status Onset Date Resolution Date Notes Provider Name and Address Organization Details Recorded Time Hypothyroidism 31948767 Active Hope tinoco, [place] - [facility] 4 13:15:03 Hypercholestero lemia 36486567 Active Hope De La Torre null, [place] [...] propionate 50 mcg/actuatio n nasal spray,suspen [place] 2 sprays every day by intranasal route [...] Last Updated DateTime 162.56 cm 27.5 kg/m2 30919.7 8 g 100.6 [degF] 18 /min 99 % 99 % 81 /min 132 mm[Hg] 84 mm[Hg] Hope Nolbe [facility] 13:17:51 Social History Question Answer Notes LastModified by Organizat ion Details LastModified Time Tobacco Smoking Status Never Smoker RUI Chavarria [facility] 12/20/2023 13:15:28 What Is Your Level Of Alcohol Consumption? None [email or web address] Information not available 12/20/2023 Have You Had A Flu Shot This Season? Yes [email or web address] Information not available 12/20/2023 What Was The Date Of Your Most Recent Tobacco Screening? 12/20/2023 Information not available 12/20/2023 Do You Use Any Illicit Or Recreational Drugs? No [email or web address] Information not available 12/20/2023 Have You Recently Traveled Abroad? Yes [place]elled To [place] 12/05 [email or web address] Information not available 12/20/2023 Do You Or Have You Ever Used Any Other Forms Of Tobacco Or Nicotine? No Information not available 12/20/2023 Sex: Unknown Functional Status None recorded. Mental Status None recorded. Family History Relationship Description Onset Age of this Age Resolved Age Notes LastModified by Organization Details LastModified Time Father No current problems or disability [email or web address] Not available 12/20 13:15:15 Mother No current problems or disability [email or web address] Not available 12/20 13:15:15 Medical History No medical history recorded. Gynecological History Statement/Question Response Is there any chance of ? No LMP N/A Obstetrics History GPAL:G 0 P 0 0 0 0 Past Encounters Encounter ID Performer Location Encounter Start Date Encounter Closed Date Diagnosis/Indication Diagnosis SNOMED-CT Code Diagnosis ICD10 Code Diagnosis Note [id number] [address] [place] [address] 05/25/2020 19:23:30 05/25/2020 19:56:49 [id number] [address] [place] [address] 07/28/2018 13:24:28 07/28/2018 14:03:46 [id number] RUI Capps [address] [place] [address] 12/20/2023 13:03:41 12/20/2023 13:36:26 Influenza-like illness 73242892 B34.9 Patient presented with symptoms of upper [...] pain or worsening. Thank you for using [employer] today, please feel free to contact our [...] Member ID Guarantor Name 12/20/2023 1 AI [id number] Korina Gramajo [id number] Teresa Gramajo Notes Date Note Type Note Provider Name and Address Organization Details Recorded Time 12/20/2023 text/html 63 y/o female with cough, congestion, low grade fevers for the past 5 days. RUI Capps [address] [place], [address], [place] - [facility] 12/20/2023 13:34:03 OBGyn Episode No OBEpisode recorded.
--- OUTSIDE RECORDS SUMMARY | 2025-02-12 07:49 | XMS_ITS | Encounter Summary ---
Author Organization [employer] Address [address] [facility] 7t [place] [address] Care Team Providers Care Amf Mechanic Name Role Phone Tamar Tucker Primary Care Provider [phone] Tamar Tucker Unavailable [phone] Heather Marrero Unavailable Reason for Visit * Reason Comments Ed f/u Encounter Details Date Type Department Care Team (Late st Contact Info) Description 02/11/2025 Patient Outreach [address] [phone] Luther King LPN Ed f/u Social History Tobacco Use Types Packs/Day Years [...] AM EDT documented as of this encounter Progress Notes * Luther King LPN - 02/11/2025 10:27 AM EDT Patient was discharged from [facility] Emergency Room on 02/06/2025 . Contacted patient [x]Spoke with Patient/Family []Unable to Reach []Left Voicemail []MyChart Message Chief Complaint: abdominal pain went to urgent care and they sent her to ED Follow up needed? :Yes Patient will follow up with []PCP []Specialist *insert specialty/doctor here* [x]Surgeon GI []Other: [] N/A Appointment Scheduled: pt will call after appt with surgeon if she needs an appt.with PCP Comments: diverticulitis pt following up with surgeon 02/12 documented in this encounter Plan of Treatment Not on file documented as of this encounter Visit Diagnoses Not on filedocumented in this encounter Additional Health Concerns Assessment Noted Time PHQ-9 Depression Total Score: 1 10/04/20 23 2:21 PM EST documented as of this encounter Care Teams Amf Mechanic Relationship Specialty Start Date End Date Tamar Tucker FNP PCP - General Family Medicine 08/26/22 Tamar Tucker FNP Family Medicine 08/26/22 Heather Marrero [address] [place] [address] 07/26/23 documented as of this encounter
--- OUTSIDE RECORDS SUMMARY | 2025-02-12 07:49 | XMS_ITS | Encounter Summary ---
Author Organization [employer] Address [address] [facility] 7t [place] [address] Care Team Providers Care Oil Winterizer Name Role Phone Tamar Tucker Primary Care Provider [phone] Tamar Tucker Unavailable [phone] Heather Marrero Unavailable Encounter Details Date Type Department Care Team ([facility] st Contact Info) Description 11/07/2024 Telephone [facility] [address] [place] [address] Tamar Tucker FNP [address] [place] [phone] Social History Tobacco Use Types Packs/Day Years [...] are still trying to get letter from anode adjuster * Telephone Encounter - Amy Christopher - [...] Les if you have any other questions [phone] [facility] claim # [id number] documented in this encounter Plan of Treatment Not on file documented as of this encounter Visit Diagnoses Not on filedocumented in this encounter Additional Health Concerns Assessment Noted Time PHQ-9 Depression Total Score: 1 10/04/20 23 2:21 PM EST documented as of this encounter Care Teams Oil Winterizer Relationship Specialty Start Date End Date Tamar Tucker FNP PCP - General Family Medicine 08/26/22 Tamar Tucker FNP Family Medicine 08/26/22 Heather Marrero [address] [place] [address] 07/26/23 documented as of this encounter
--- OUTSIDE RECORDS SUMMARY | 2025-02-12 07:49 | XMS_ITS | Encounter Summary ---
Author Organization [employer] Address [address] [facility] 7t [place] [address] Care Team Providers Care Trolley Cleaner Name Role Phone Tamar Tucker Primary Care Provider [phone] Tamar Tucker Unavailable [phone] Heather Marrero Unavailable Encounter Details Date Type Department Care Team ([facility] st Contact Info) Description 02/04/[address] [address] Tamar Tucker FNP [address] [place] [address] Social History Tobacco Use Types Packs/Day Years [...] AM EDT Please refax the referral to [facility]. Please advise the patient Call back # [phone] documented in this encounter Plan of Treatment Not on file documented as of this encounter Visit Diagnoses Not on filedocumented in this encounter Additional Health Concerns Assessment Noted Time PHQ-9 Depression Total Score: 1 10/04/20 23 2:21 PM EST documented as of this encounter Care Teams Trolley Cleaner Relationship Specialty Start Date End Date Tamar Tucker FNP PCP - General Family Medicine 08/26/22 Tamar Tucker FNP Family Medicine 08/26/22 Heather Marrero [address] [place] [address] 07/26/23 documented as of this encounter
--- OUTSIDE RECORDS SUMMARY | 2025-02-12 07:49 | XMS_ITS | Encounter Summary ---
Author Organization [email or web address] Address [address] [facility] 7 [place] [address] Care Team Providers Care Furs Salesperson Name Role Phone Tamar Tucker Primary Care Provider Tamar Tucker Unavailable [phone] FranksTyra Unavailable [phone] Heather Marrero Unavailable Encounter Details Date Type Department Care Team (Late st Contact Info) Description 10/18/[address] [address] Tamar Tucker FNP [address] [place] [address] Social History Tobacco Use Types Packs/Day Years [...] on filedocumented in this encounter Care Teams Furs Salesperson Relationship Specialty Start Date End Date Tamar Tucker FNP PCP - General Family Medicine 08/26/22 Tamar Tucker FNP Family Medicine 08/26/22 Tyra Franks [address] [place] [address] 07/17/23 07/02/24 Heather Marrero [address] [place] [address] 07/26/23 documented as of this encounter
--- OUTSIDE RECORDS SUMMARY | 2025-02-12 07:49 | XMS_ITS | Encounter Summary ---
Author Organization [employer] Address [address] [facility] 7t [place] [address] Care Team Providers Care Class B Driver Name Role Phone Tamar Tucker Primary Care Provider [phone] Tamar Tucker Unavailable [phone] Heather Marrero Unavailable Encounter Details Date Type Department Care Team ([facility] Contact Info) Description 08/15/[address] [address] Tamar Tucker FNP [address] [place] [address] [phone] Social History Tobacco Use Types Packs/Day Years [...] would like her lab orders sent to [facility] if possible so she can have them done closer to where she lives. Her call back number is [phone] documented in this encounter Plan of Treatment Not on file documented as of this encounter Visit Diagnoses Not on filedocumented in this encounter Additional Health Concerns Assessment Noted Time PHQ-9 Depression Total Score: 1 10/04/20 23 2:21 PM EST documented as of this encounter Care Teams Class B Driver Relationship Specialty Start Date End Date Tamar Tucker FNP PCP - General Family Medicine 08/26/22 Tamar Tucker FNP Family Medicine 08/26/22 Heather Marrero [address] [place] [address] 07/26/23 documented as of this encounter
--- NOTE | 2025-02-12 07:51 | MHC.OFFVIS ---
Vital Signs 02/12/25 08:01 Height 5 ft 4 in Weight 184 lb BMI 31.6 BP 134/64 Blood Pressure Location Rt brachial Position Sitting Pulse 65 Intake Visit Reasons: diverticulitis Intake Note: Patient seen at [facility] ED for abdominal pain. Almost done w/ Cipro and Metronidazole X7d course. Patient c/o: having a good day today. Taking senna for constipation. CT Abd/pelvis: 02-06-2025 Pivot Maker Required: No Accompanied by: E[place]od Allergies Penicillins Allergy (Verified 02/12/25 07:57) Unknown HPI Comments Details: Patient presents here status post recent ER visit for diverticulitis. This was her 3rd episode. Presents here with a significant other. Patient was given antibiotics and dietary instructions. She has had marked improvement of her symptoms. She apparently also had a significant stool burden which has improved with stool softeners. Patient was not recall when her last colonoscopy was but this beyond 5 years now. Otherwise she tolerates her diet. Has regular bowel habits. No other GI issues or complaints. Chart was reviewed and patient evaluated. [facility] Surgical History (Updated 02/12/25 @ 08:34 by Tai Obrien MD) H/O tubal ligation H/O thyroidectomy Family History (Updated 02/12/25 @ 08:00 by JACQUIE Ferrari) Mother Cervical cancer Social History (Updated 02/12/25 @ 08:00 by JACQUIE Ferrari) Alcohol intake: never Patient Tobacco Use Status: Never used Tobacco Physical Exam Vital Signs: Last Vital Signs Pulse 65 02/12/25 08:01 BP 134/64 02/12/25 08:01 BMI result Body Mass Index 31.6 GI Other: Moderately corpulent abdomen. Minimal left lower quadrant tenderness. Patient was states her symptoms are markedly improved as noted above. Assessment & Plan Assessment & Plan (1) Diverticulitis large intestine: Code(s): K57.32 - Diverticulitis of large intestine without perforation or abscess without bleeding Category: Surgical Plan Patient was been given dietary recommendations including stool softeners, roughage, Metamucil or Citrucel to maintain soft stool and will see me in a few weeks' time for follow-up. She is to complete her antibiotic course. In the meantime, at the next visit if she has not arranged for follow-up colonoscopy, we will do so for her. All questions answered. Coding Level of Care Code New Pt Level 4 (09493) Diagnoses Diverticulitis large intestine K57.32
[2025-02-12 08:01] VITALS: BP 134/64; PULSE 65; BMI 31.6
== END 2025-02-12 08:24 | disposition home or self-care (01) ==
PROVIDERS: PCP Student in an Organized Health Care Education/Training Program; Visit Provider Surgery
DX: K57.32 Diverticulitis of large intestine without perforation or abscess without bleeding (principal)
CPT/HCPCS: 99204

== ENCOUNTER 2025-03-11 13:17 | Outpatient (AMB) | payer OTHER, SELFPAY ==
--- NOTE | 2025-03-11 13:20 | MHC.OFFVIS ---
Vital Signs 03/11/25 13:32 Height 5 ft 4 in Weight 187 lb 4 oz BMI 32.1 BP 137/71 Blood Pressure Location Lt brachial Position Sitting Pulse 70 Intake Visit Reasons: one month diverticulitis ( Dr Obrien's pt ) Intake Note: Patient is seen in office for one month follow up visit, following on diverticulitis. Pt c/o: no concerns or pain since last visit Compressor Technician Required: No Accompanied by: Self / Same As Patient Allergies Penicillins Allergy (Verified 03/11/25 13:32) Unknown HPI Comments Details: 64-year-old female patient returning to the office for follow-up examination after a recent episode of diverticulitis. She has had several mild episodes of diverticulitis which resolved spontaneously. Her most recent episode did not improve and she subsequently was evaluated in the emergency department. Workup with CT abdomen and pelvis revealed inflammation of the distal descending colon suggestive of sigmoid diverticulitis without perforation or abscess. She was discharged home on oral antibiotics and subsequently improved. She currently denies any abdominal pain. Her bowels are moving on a daily basis. She denies fever or chills. She has not arranged for follow-up colonoscopy. [facility] Surgical History Diverticulitis large intestine H/O tubal ligation H/O thyroidectomy Family History Mother Cervical cancer Social History Alcohol intake: never Patient Tobacco Use Status: Never used Tobacco Review of Systems Const All systems reviewed & are unremarkable except as noted in HPI and below Physical Exam Vital Signs: Last Vital Signs Pulse 70 03/11/25 13:32 BP 137/71 03/11/25 13:32 BMI result Body Mass Index 32.1 Const General: comfortable Nutritional Appearance: well nourished Orientation/consciousness: patient oriented x3 Limitations: no limitations Resp Effort & Inspection: normal respiratory effort, no audible wheezes, no cough and no respiratory distress GI Inspection: Yes normal to inspection Palpation (GI): Soft to palpation, nontender, no guarding, not rigid and No hepatosplenomegaly present Percussion: Yes normal to percussion Auscultation: normal bowel sounds Neuro General: patient oriented x3 Extrem General: Yes no clubbing, cyanosis or edema Assessment & Plan Assessment & Plan (1) Diverticulitis large intestine: Code(s): K57.32 - Diverticulitis of large intestine without perforation or abscess without bleeding Category: Surgical Qualifiers: Diverticulitis bleeding: without bleeding Diverticulitis complication: without perforation or abscess Qualified Code(s): K57.32 - Diverticulitis of large intestine without perforation or abscess without bleeding Plan 64-year-old female patient with a recent history of a mild uncomplicated sigmoid diverticulitis. She is now much improved after taking oral antibiotics. Examination today revealed no further tenderness in the abdomen. She would like to set up colonoscopy here at [facility] therefore I will refer her to Gastroenterology. We will hold off on any surgical intervention at this time as her symptoms have completely improved. She should call our office should the symptoms returned to restart the antibiotics soon as possible. Orders: Referrals Gastroenterology Referral K57.32 - Diverticulitis of large intestine without perforation or abscess without bleeding Coding Level of Care Code Est Pt Level 3 (32117) Diagnoses Diverticulitis of large intestine without perforation or abscess without bleeding K57.32 Diverticulitis bleeding: without bleeding Diverticulitis complication: without perforation or abscess
[2025-03-11 13:32] VITALS: BP 137/71; PULSE 70; BMI 32.1
--- OUTSIDE RECORDS SUMMARY | 2025-03-11 14:24 | XMS_ITS | Encounter Summary ---
Author Organization [employer] Address [address] [facility] 7t [place] [address] Care Team Providers Care Head Of History Name Role Phone Tamar Tucker Primary Care Provider [phone] Tamar Tucker Unavailable [phone] Heather Marrero Unavailable Encounter Details Date Type Department Care Team ([facility] Contact Info) Description 08/15/[address] [address] Tamar Tucker FNP [address] [place] [address] Social History Tobacco Use Types Packs/Day [...] would like her lab orders sent to [facility] if possible so she can have them done closer to where she lives. Her call back number is [phone] documented in this encounter Plan of Treatment Not on file documented as of this encounter Visit Diagnoses Not on filedocumented in this encounter Additional Health Concerns Assessment Noted Time PHQ-9 Depression Total Score: 1 10/04/20 23 2:21 PM EST documented as of this encounter Care Teams Head Of History Relationship Specialty Start Date End Date Tamar Tucker FNP PCP - General Family Medicine 08/26/22 Tamar Tucker FNP Family Medicine 08/26/22 Heather Marrero [address] [place] [address] 07/26/23 documented as of this encounter
--- OUTSIDE RECORDS SUMMARY | 2025-03-11 14:24 | XMS_ITS | Encounter Summary ---
Author Organization [employer] Address 75 [facility] 7t [place] [address] Care Team Providers Care Director Reactor Projects Name Role Phone Tamar Tucker Primary Care Provider [phone] Tamar Tucker Unavailable [phone] Heather Marrero Unavailable Encounter Details Date Type Department Care Team ([facility] st Contact Info) Description 02/04/[address] [address] Tamar Tucker FNP [address] [place] [address] Social History Tobacco Use Types Packs/Day Years [...] * Telephone Encounter - Cathy Bergeron - 03/06/2025 11:48 AM EDT refaxed * Telephone Encounter - Elena Almazan - 02/04/2025 8:59 AM EDT [facility]. Please advise the patient Call back # [phone] documented in this encounter Plan of Treatment Not on file documented as of this encounter Visit Diagnoses Not on filedocumented in this encounter Additional Health Concerns Assessment Noted Time PHQ-9 Depression Total Score: 1 10/04/20 23 2:21 PM EST documented as of this encounter Care Teams Director Reactor Projects Relationship Specialty Start Date End Date Tamar Tucker FNP PCP - General Family Medicine 08/26/22 Tamar Tucker FNP Family Medicine 08/26/22 Heather Marrero [address] [place] [address] 07/26/23 documented as of this encounter
--- OUTSIDE RECORDS SUMMARY | 2025-03-11 14:24 | XMS_ITS | Encounter Summary ---
Author Organization [employer] Address [address] [place] [address] 7 [place] [address] Care Team Providers Care Waiter/Waitress Formal Name Role Phone Tamar Tucker Primary Care Provider [phone] Tamar Tucker Unavailable [phone] Tyra Franks Unavailable [phone] BassamgiovaniHeather Unavailable Encounter Details Date Type Department Care Team (Late st Contact Info) Description 09/20/2022 Abstract [facility] [address] [place] [phone] Audelia Lange, RN [address] [place] [address] Social History Tobacco Use Types Packs/Day Years [...] on filedocumented in this encounter Care Teams Waiter/Waitress Formal Relationship Specialty Start Date End Date Tamar Tucker FNP PCP - General Family Medicine 08/26/22 Tamar Tucker FNP Family Medicine 08/26/22 Tyra Franks [address] [place] [address] 07/17/23 07/02/24 Heather Marrero [address] [place] [address] 07/26/23 documented as of this encounter
--- OUTSIDE RECORDS SUMMARY | 2025-03-11 14:24 | XMS_ITS | Encounter Summary ---
Author Organization [employer] Address 75 [facility] 7 [place] [address] Care Team Providers Care Steel Wool Machine Operator Name Role Phone Tamar Tucker Primary Care Provider [phone] Tamar Tucker Unavailable [phone] FranksTyra Unavailable [phone] Heather Marrero Unavailable Encounter Details Date Type Department Care Team (Late st Contact Info) Description 10/18/[address] [address] Tamar Tucker FNP [address] [place] [address] Social History Tobacco Use Types Packs/Day Years [...] on filedocumented in this encounter Care Teams Steel Wool Machine Operator Relationship Specialty Start Date End Date Tamar Tucker FNP PCP - General Family Medicine 08/26/22 Tamar Tucker FNP Family Medicine 08/26/22 Tyra Franks [address] [place] [address] 07/17/23 07/02/24 Heather Marrero [address] [place] [address] 07/26/23 documented as of this encounter
--- OUTSIDE RECORDS SUMMARY | 2025-03-11 14:24 | XMS_ITS | Clinical Summary ---
Author Organization [employer] Address 75 [facility] 7t [place] [address] Care Team Providers Care Internet Ecommerce Specialist Name Role Phone Tamar Tucker Primary Care Provider [phone] Tamar Tucker Unavailable [phone] Heather Marrero Unavailable Allergies Active Allergy Reactions [...] Department Care Team Description 02/11/2025 Patient Outreach [address] [place] [address] [place] [address] Luther King LPN Ed f/u 02/04/[address] [address] Tamar Tucker FNP 01/09/[address] [phone] Tamar Tucker FNP 01/06/[address] [address] Tamar Tucker FNP 01/06/[address] [address] Breanne Saucedo NP 12/18/2024 9:00 AM EST Office Visit [address] [address] Tamar Tucker FNP Chronic pain of left knee (Primary Dx) 12/18/[address] [address] Tamar Tucker FNP 12/18/[address] [address] Tamar Tucker FNP [facility] - Outreach 12/18/[address] [address] Tamar Tucker FNP from Last 3 Months [...] L-spine Magnetic Resonan ce Phillip Mosley MD [facility] MRI PROCEDURES Final Res ult * (ABNORMAL) Lipid Panel, Standard (10/04/2023 2:06 PM EST) Cholesterol, Total 235(H) (<200) MG/DL [facility] Triglyceride (mg/dL) in Serum/Plasma 114 (<150) MG/DL [facility] HDL Cholesterol 64 (>39) MG/DL [facility] LDL Cholesterol, Calculated 148(H) (0-130) MG/DL [facility] Non HDL Chol. (LDL+VLDL) 171(H) (<160) MG/DL [facility] Comment: Testing performed or reported by [facility], a [facility], [address] [place] [address] Jose Crystal MD, Family Day Carer [facility]# [id number] Blood Venous blood specimen / Unknown 10/04/2023 2:06 PM EST 10/04/2023 2:11 PM EST Tamar Tucker SUPERVISOR [employer] LAB BLOOD ORDERABLES Final Res ult [address] [address] * Mammography (09/23/2022) Pathologist [facility] Mammogram BIRADS 1 Anatomical Region Laterality Modality Other Historical Provider HEALTH MAINTENANCE Final Result * Pap Smear (09/16/2022) Pathologist [facility] Pap smear NILM, HPV neg [facility] Provider HEALTH MAINTENANCE Final Result * THIN PREP PAP, WITH HPV, GENOTYPE IF HPV+ (09/13/2022 10:30 AM EST) [facility] See Report CONVERTED LEGACY LABS 09/13/2022 10:3 0 AM EST Result [facility] Historical Provider LAB CYTOLOGY ORDERABLES F inal Result CONVERTED LEGACY LABS * Colonoscopy (11/25/2020) Pathologist [facility] Colonoscopy Repeat 7 yrs Historical Provider HEALTH MAINTENANCE Final Result * Hepatitis C Antibody (01/13/2017) [facility] Hepatitis C Antibody Nonreactive Blood Historical Provider HEALTH MAINTENANCE Final Result from Last 3 Months or Most Recently Relevant to Health Maintenance Insurance [facility] [employer] Care Teams Internet Ecommerce Specialist Relationship Specialty Start Date End Date Tamar Tucker FNP PCP - General Family Medicine 08/26/22 Tamar Tucker FNP Family Medicine 08/26/22 Heather Marrero [address] [place] [address] 07/26/23
--- OUTSIDE RECORDS SUMMARY | 2025-03-11 14:24 | XMS_ITS | Encounter Summary ---
Author Organization [employer] Address [address] [facility] 7t [place] [address] Care Team Providers Care Floor Finisher Name Role Phone Tamar Tucker Primary Care Provider [phone] Tamar Tucker Unavailable [phone] Heather Marrero Unavailable Encounter Details Date Type Department Care Team ([facility] st Contact Info) Description 08/30/[address] [address] Tamar Tucker FNP [address] [place] [address] Social History Tobacco Use Types Packs/Day [...] PM EST Referrals are being billed though [facility], we have been waiting for headlight adjuster * Telephone Encounter - Kendra Jenkins - 08/30/2024 12:01 PM EDT The xray and physical therapy referrals should be sent to [employer] [facility] not to [facility], they are the result of an accident and once she surpasses the $8000 for that they can then be billed to [facility] but in the meantime, Marqui has to be the one to authorize . Please advise patient, she statesthat [employer] has not gotten any referrals. [phone] documented in this encounter Plan of Treatment Not on file documented as of this encounter Visit Diagnoses Not on filedocumented in this encounter Additional Health Concerns Assessment Noted Time PHQ-9 Depression Total Score: 1 10/04/20 23 2:21 PM EST documented as of this encounter Care Teams Floor Finisher Relationship Specialty Start Date End Date Tamar Tucker FNP PCP - General Family Medicine 08/26/22 Tamar Tucker FNP Family Medicine 08/26/22 Heather Marrero [address] [place] [address] 07/26/23 documented as of this encounter
--- OUTSIDE RECORDS SUMMARY | 2025-03-11 14:24 | XMS_ITS | Data Portability ---
Author Organization [employer] [facility] Address [address] [place] [address] Care Team Providers Care Wind Turbine Mechanical Engineer Name Role Phone [facility] Care Provider Assessment No assessment recorded. Plan of Treatment Reminders Order Date Submit Date Provider Last Modified By Organization Details Last Modified Time Details Appointments None recorded. Lab SARS CoV 2 (COVID-19) Ag, QL, IA, upper respiratory specimen 2023 [place] [facility], [address] [place] [address], [address], 4 13:32:53 rapid flu (A+B) [address] [place] [facility], [address] [place] [address], [address], 4 13:32:36 Referral None recorded. Procedures None recorded. Surgeries None recorded. Imaging None recorded. Medication Orders fluticasone propionate 50 mcg/actuati on nasal spray,suspe nsion 2023 024 [facility], [address] [place], [address], 4 13:31:56 Patient TargetsNo targets recorded. Patient InstructionsNo instructions recorded. Reason for Referral None Reported. Results Created Date Observation Date Name Description Value Unit Range Abnormal Flag Note LastModifiedBy Organization Detail LastModifiedTime 12/20/19 24 12/20/2023 rapid flu (A+B) Unknown Analyte negati ve Not Available le yr [address] [place], [address], 12/20/2023 13:17:57 12/20/19 24 12/20/2023 rapid flu (A+B) Unknown Analyte negati ve Not Available [facility] [address] [place], [address], 12/20/2023 13:17:57 12/20/19 24 12/20/2023 rapid flu (A+B) Unknown Analyte yes Not Available [facility] itzel [address] [place], [address], 12/20/2023 13:17:57 12/20/19 24 12/20/2023 SARS CoV 2 (COVI D-19) Ag, QL, IA, upper respi rator y speci men Unknown Analyte negati ve Not Available [facility] [address] [place], [address], 12/20/2023 13:16:05 12/20/19 24 12/20/2023 SARS CoV 2 (COVI D-19) Ag, QL, IA, upper respi rator y speci men Unknown Analyte yes Not Available [facility] itzel [address] [place], [address], 12/20/2023 13:16:05 Result Notes None recorded. Problems Name Problem SNOMED Code Status Onset Date Resolution Date Notes Provider Name and Address Organization Details Recorded Time Hypothyroidism 16670018 Active Hope tinoco, [place] - [facility] 4 13:15:03 Hypercholestero lemia 65354334 Active Hope De La Torre null, PA [...] propionate 50 mcg/actuatio n nasal spray,suspen wilbur [place] 2 sprays every day by intranasal route [...] Last Updated DateTime 162.56 cm 27.5 kg/m2 88771.7 8 g 100.6 [degF] 18 /min 99 % 99 % 81 /min 132 mm[Hg] 84 mm[Hg] Hope FABIAN - [facility] 13:17:51 Social History Question Answer Notes LastModified by Organizat ion Details LastModified Time Tobacco Smoking Status Never Smoker RUI Chavarria [facility] 12/20/2023 13:15:28 Have You Had A Flu Shot This Season? Yes [email or web address] Information not available 12/20/2023 What Was The Date Of Your Most Recent Tobacco Screening? 12/20/2023 Information not available 12/20/2023 Have You Recently Traveled Abroad? Yes [facility] 12/05 [email or web address] Information not available 12/20/2023 Sex: Unknown Functional Status Question Answer Note LastModified by Organizat ion Details LastModified Time Do you use any illicit or recreational drugs? No [email or web address] Information not available 12/20/2023 Do you or have you ever used any other forms of tobacco or nicotine? No [email or web address] Information not available 12/20/2023 What is your level of alcohol consumption? None [email or web address] Information not available 12/20/2023 Mental Status None recorded. Family History Relationship Description Onset Age of this Age Resolved Age Notes LastModified by Organization Details LastModified Time Father No current problems or disability [email or web address] Not available 12/20 13:15:15 Mother No current problems or disability [email or web address] Not available 12/20 13:15:15 Medical History No medical history recorded. Gynecological History Statement/Question Response Is there any chance of ? No LMP N/A Obstetrics History GPAL:G 0 P 0 0 0 0 Past Encounters Encounter ID Performer Location Encounter Start Date Encounter Closed Date Diagnosis/Indication Diagnosis SNOMED-CT Code Diagnosis ICD10 Code Diagnosis Note [id number] [address] [place] [address] 05/25/2020 19:23:30 05/25/2020 19:56:49 [id number] [address] [place] [address] 07/28/2018 13:24:28 07/28/2018 14:03:46 [id number] RUI Capps [address] [place] [address] 12/20/2023 13:03:41 12/20/2023 13:36:26 Influenza-like illness 93429905 B34.9 Patient presented with symptoms of upper [...] usage was discussed and recommenda tions made.Jeanette nt understood these instructio ns and will follow up in the office in 10 days to 2 weeks if symptoms not improving. ER if any shortness of breath/vj st pain or worsening. Thank you for using [facility] today, please feel free to contact our office if you have any questions or concerns. Health Concerns Section Related Observation LastModified by Organization Detai ls LastModified Time None Recorded Concern Status LastModified by Organization Details LastModified Time None Recorded Advance Directives Directive None Recorded Payers Insurance Date Sequence Insurance Name Policy Number Policy Holly Covered Member ID Holly Member ID Guarantor Name 12/20/2023 1 AI [id number] Korina Gramajo [id number] Teresa Gramajo 09/28/2022 [employer] [facility] Med Generic (Move To Hold) [[id number]] Teresa Gramajo 09/28/2022 [employer]IC WORKERS COMP [facility] Med Generic (Move To Hold) [[id number]] Teresa Gramajo 09/28/2022 GENERIC WORKER'S COMP (MOVED TO HOLD) [facility] Med Generic (Move To Hold) [130139] Teresa Gramajo Notes Date Note Type Note Provider Name and Address Organization Details Recorded Time 12/20/2023 text/html 63 y/o female with cough, congestion, low grade fevers for the past 5 days. RUI Capps [address] [place], [address], [place] - [facility] 12/20/2023 13:34:03 OBGyn Episode No OBEpisode recorded.
--- OUTSIDE RECORDS SUMMARY | 2025-03-11 14:24 | XMS_ITS | Encounter Summary ---
Author Organization [employer] Address [address] [facility] [address] 7t [place] [address] Care Team Providers Care Operator Maintainer Name Role Phone Tamar Tucker Primary Care Provider [phone] Tamar Tucker Unavailable [phone] Heather Marrero Unavailable Encounter Details Date Type Department Care Team (Late st Contact Info) Description 01/06/[address] [phone] Tamar Tucker FNP [address] [place], [place] [phone] Social History Tobacco Use Types Packs/Day Years [...] said she wants to speak to her life insurance sales agent first then will call back with what she would like to do. documented in this encounter Plan of Treatment Not on file documented as of this encounter Visit Diagnoses Not on filedocumented in this encounter Additional Health Concerns Assessment Noted Time PHQ-9 Depression Total Score: 1 10/04/20 23 2:21 PM EST documented as of this encounter Care Teams Operator Maintainer Relationship Specialty Start Date End Date Tamar Tucker FNP PCP - General Family Medicine 08/26/22 Tamar Tucker FNP Family Medicine 08/26/22 Heather Marrero [address] [place] [address] 07/26/23 documented as of this encounter
--- OUTSIDE RECORDS SUMMARY | 2025-03-11 14:24 | XMS_ITS | Encounter Summary ---
Author Organization [employer] Address 75 [facility] 7t [place] [address] Care Team Providers Care Plant Electrical Engineer Name Role Phone Tamar Tucker Primary Care Provider [phone] Tamar Tucker Unavailable [phone] Heather Marrero Unavailable Encounter Details Date Type Department Care Team ([facility] st Contact Info) Description 08/16/[address] [address] Tamar Tucker FNP [address] [place] [address] Social History Tobacco Use Types Packs/Day [...] 08/16/2024 11:27 AM EDT Is at the [facility] for labs, please have provider melanie the orders and resend as theywere not singed. documented in this encounter Plan of Treatment Not on file documented as of this encounter Visit Diagnoses Not on filedocumented in this encounter Additional Health Concerns Assessment Noted Time PHQ-9 Depression Total Score: 1 10/04/20 23 2:21 PM EST documented as of this encounter Care Teams Plant Electrical Engineer Relationship Specialty Start Date End Date Tamar Tucker FNP PCP - General Family Medicine 08/26/22 Tamar Tucker FNP Family Medicine 08/26/22 Heather Marrero [address] [place] [address] 07/26/23 documented as of this encounter
== END 2025-03-11 13:44 | disposition home or self-care (01) ==
LOC: HO.HGS 13:18
PROVIDERS: PCP Student in an Organized Health Care Education/Training Program; Visit Provider Surgery
DX: K57.32 Diverticulitis of large intestine without perforation or abscess without bleeding (principal)
CPT/HCPCS: 99213

== ENCOUNTER 2025-08-29 10:20 | Outpatient (AMB) | payer OTHER, SELFPAY ==
--- NOTE | 2025-08-29 10:21 | MHC.OFFVIS ---
Vital Signs 08/29/25 10:24 Height 5 ft 4 in Weight 181 lb BMI 31.1 BP 138/77 Blood Pressure Location Lt brachial Position Sitting Pulse 75 Intake Visit Reasons: Diverticulitis Intake Note: Patient new consult for Diverticulitis patient cc: no fever or chills, no abdominal pain,reports good appetite. Installers Mechanical Required: No Accompanied by: Self / Same As Patient Allergies Penicillins Allergy (Verified 08/29/25 10:25) Unknown Medication List - Last Reconciled 08/29/25 by Sarina Gilbert CNP atorvastatin 20 mg PO DAILY gabapentin mg PO multivitamin 1 tab PO DAILY HPI HPI Diverticulitis: Details: Patient is a 64-year-old female with PMH of hyperlidipemia. Referred by General surgery for pre colonoscopy screening. Patient presents for GI evaluation following an episode of diverticulitis in January. Reports no recent flares and states current bowel movements have returned to baseline regularity, with daily stools. Describes a single episode of postprandial abdominal discomfort after consuming a cereal high in almond grains approximately two weeks ago, which resolved completely after taking senna without further recurrence. Appetite remains good and no significant changes in dietary tolerance apart from avoidance of excessive nuts/grains due to personal symptom triggers. No weight loss recognized by patient, though weight remains stable per office records (181?187 lbs). Non-GI comorbidities include HLD, prior hypothyroidism post-thyroidectomy (now off levothyroxine), and chronic musculoskeletal pain post-accident, intermittently treated with gabapentin. No known DM, asthma, or pulmonary/cardiac disease influencing GI management. Family history notable for ovarian and cervical cancer (maternal). Patient denies: fever/chills, n/v, appetite changes, pyrosis, regurgitation,dysphasia, unintentional wt loss, ab pain or melena/hematochezia. Social hx: -denies ETOH use -denies recreational drug use -non-smoker - family hx as below - denies personal hx of CA -denies significant cardiopulmonary history -tolerated anesthesia in the past without difficulty. [facility] Medical History (Updated 08/29/25 @ 10:56 by Sarina Gilbert CNP) Colon cancer screening Surgical History Diverticulitis large intestine H/O tubal ligation H/O thyroidectomy Family History Mother Cervical cancer Social History Alcohol intake: never Patient Tobacco Use Status: Never used Tobacco Review of Systems Const Reports as per HPI ENT Reports as per HPI Card Reports as per HPI Resp Reports as per HPI GI Reports as per HPI Reports as per HPI Physical Exam Vital Signs: Last Vital Signs Pulse 75 08/29/25 10:24 BP 138/77 08/29/25 10:24 BMI result Body Mass Index 31.1 Const General: healthy appearing, no acute distress and well developed Nutritional Appearance: average body habitus Orientation/consciousness: patient oriented x3 HEENT Head: Yes normal to inspection, Yes normocephalic and Yes atraumatic Face and sinus: Yes normal facial exam Eyes General: appearance normal, both eyes and all related structures Neck Neck: Yes normal visual inspection Resp Effort & Inspection: normal respiratory effort, able to speak in complete sentences, no tracheal deviation and symmetric chest movement Cardio Jugular venous distension: no JVD Neuro General: patient oriented x3 Gait exam (Neuro): Normal gait present Psych Appearance: grossly normal Mental Status: mental status grossly normal Speech and movement: Normal speech and movement present Affect: normal affect Attitude: cooperative Thought process: Normal thought process present Thought content: Normal thought content present Insight: Good insight present (Psych) Judgement: Good judgement present (Psych) Results Reviewed Results Reviewed: Date of Service: 02/06/25 Procedure(s): CT abdomen pelvis w IV con Accession Number(s): [id number] cc: Physician,Unknown ; Christiane Hernandes Report Number: [id number]: Total DLP = 597.00 mGy-cm CLINICAL HISTORY: diffusely tender left side of abdomen CT ABDOMEN AND PELVIS WITH CONTRAST Comparison: None Findings: There are multiple small pulmonary cysts. No basilar consolidation or pleural effusion. Small hiatal hernia. No acute abnormalities in the solid organs. No urolithiasis. The gallbladder is contracted. Normal caliber abdominal aorta. No bowel obstruction, pneumoperitoneum, or pneumatosis. There are multiple descending and sigmoid colon diverticula. There is mucosal and paracolic edema in the mid to distal descending colon. No free or loculated fluid collection. [id number] colonic stool burden. Nonspecific small bowel feces. Uterine configuration is most suggestive of multiple fibroids. There is a 1.7 cm cystic lesion in the right adnexa that is likely ovarian in etiology. The appendix is identified. No acute appendicitis. The bones are intact. IMPRESSION: 1. Acute diverticulitis in the mid to distal descending colon with no evidence for perforation or abscess. 2. No obstructive or acute inflammatory changes in the genitourinary tract. 3. Probable fibroid uterus. This document has been electronically signed by: Amisha Curtis DO on 02/06/2025 17:18:03 Assessment & Plan Assessment & Plan (1) Colon cancer screening: Code(s): Z12.11 - Encounter for screening for malignant neoplasm of colon Category: Medical Plan: Colorectal cancer screening (prior polyps, interval colonoscopy due). Last colonoscopy with 2 polyps removed, >4-5 yrs ago; no recent CRC screening. Current guidelines recommend repeat interval based on polyp history. Additional Testing: Colonoscopy ordered; obtain prior colonoscopy records to determine exact timing/polyp pathology if possible. Medication Management: Prescribe/fill colonoscopy bowel prep (Miralax + 4 bisacodyl tabs); deferred ABX unless indicated. Lifestyle Recommendations: Clear liquid diet day before procedure; avoid red, blue, purple liquids during prep; no solid food, strict NPO status 4 hrs pre-procedure; arrange reliable transportation post-sedation. Follow-Up: - Unable to provide details about nsurance coverage/cost for colonoscopy; patient to confirm preferred facility/network status prior to scheduling. -In-office follow-up scheduled post-procedure to review results and determine further surveillance plan; PRN earlier for new or concerning symptoms. (2) Diverticulitis large intestine: Code(s): K57.32 - Diverticulitis of large intestine without perforation or abscess without bleeding Category: Surgical Qualifiers: Diverticulitis bleeding: without bleeding Diverticulitis complication: without perforation or abscess Qualified Code(s): K57.32 - Diverticulitis of large intestine without perforation or abscess without bleeding Plan: Resolved. - No ongoing symptoms since acute episode in January; identifies specific food triggers (nuts/grains). - Additional Testing: None at this time. - Medication Management: Continued PRN use of senna as needed; no antibiotics or new medications indicated. - Lifestyle Recommendations: Continue avoiding foods known to trigger symptoms; ensure adequate hydration and fiber in diet; maintain regular bowel habits. - Follow-Up: PRN for recurrence; reinforce prompt reporting of new symptoms. Plan Follow-up after colonoscopy or sooner as needed Time: I spent a total of 33 minutes on the date of encounter which includes: Preparing to see the patient (reviewed previous documentation, test results and medical history) Performing a medically appropriate exam and/or evaluation Ordering medications, tests, and procedures Documenting clinical information in the health record Orders: Referrals GI Procedure Notification Z12.11 - Encounter for screening for malignant neoplasm of colon Medications: New bisacodyl Take per colonoscopy instructions 20 mg (4 x 5 mg) PO ONCE 4 tabs 0RF polyethylene glycol 3350 (Miralax) per colonoscopy prep instructions 238 grams PO ONCE 238 grams 0RF Coding Level of Care Code New Pt New Pt Level 3 (81653) Patient Type New Diagnoses Colon cancer screening Z12.11 Diverticulitis of large intestine without perforation or abscess without bleeding K57.32 Diverticulitis bleeding: without bleeding Diverticulitis complication: without perforation or abscess
[2025-08-29 10:24] VITALS: BP 138/77; PULSE 75; BMI 31.1
--- OUTSIDE RECORDS SUMMARY | 2025-08-29 11:40 | XMS_ITS | Encounter Summary ---
Author Organization [employer] Address [address] [facility] 7 [place] [address] Care Team Providers Care Pantographer Name Role Phone Tamar Tucker Primary Care Provider [phone] Tamar Tucker Unavailable [phone] Tyra Franks Unavailable [phone] Heather Marrero Unavailable Encounter Details Date Type Department Care Team (Late st Contact Info) Description 10/18/[address] [phone] Tamar Tucker FNP [address] [place] [address] Social History Tobacco Use Types Packs/Day Years [...] on filedocumented in this encounter Care Teams Pantographer Relationship Specialty Start Date End Date Tamar Tucker FNP PCP - General Family Medicine 08/26/22 Tamar Tucker FNP Family Medicine 08/26/22 Tyra Franks [address] [place] [address] 07/17/23 07/02/24 Heather Marrero [address] [place] [address] 07/26/23 documented as of this encounter
--- OUTSIDE RECORDS SUMMARY | 2025-08-29 11:40 | XMS_ITS | Encounter Summary ---
Author Organization [employer] Address [address] [facility] 7t [place] [address] Care Team Providers Care Venetian Blind Cleaner Name Role Phone Tamar Tucker Primary Care Provider [phone] Tamar Tucker Unavailable [phone] Heather Marrero Unavailable Encounter Details Date Type Department Care Team ([facility] st Contact Info) Description 08/30/2024 Telephone [facility] [address] [place] [address] Tamar Tucker FNP [address] [place] [address] Social History Tobacco Use Types Packs/Day [...] your housing situation today? I have berkley sing 10/04/[address] you li [...] PM EST Referrals are being billed though [facility], we have been waiting for machine adjuster leader * Telephone Encounter - Kendra Jenkins - 08/30/2024 12:01 PM EDT The xray and physical therapy referrals should be sent to [employer] insurance not to [facility], they are the result of an accident and once she surpasses the $8000 for that they can then be billed to [facility] but in the meantime, [facility] has to be the one to authorize . Please advise patient, she statesthat [employer] has not gotten any referrals. [phone] documented in this encounter Plan of Treatment Not on file documented as of this encounter Visit Diagnoses Not on filedocumented in this encounter Additional Health Concerns Assessment Noted Time PHQ-9 Depression Total Score: 1 10/04/20 23 2:21 PM EST documented as of this encounter Care Teams Venetian Blind Cleaner Relationship Specialty Start Date End Date Tamar Tucker FNP PCP - General Family Medicine 08/26/22 Tamar Tucker FNP Family Medicine 08/26/22 Heather Marrero [address] [place] [address] 07/26/23 documented as of this encounter
--- OUTSIDE RECORDS SUMMARY | 2025-08-29 11:40 | XMS_ITS | Encounter Summary ---
Author Organization [employer] Address [address] [facility] 7t [place] [address] Care Team Providers Care Business Travel Consultant Name Role Phone Tamar Tucker Primary Care Provider [phone] Tamar Tucker Unavailable [phone] Heather Marrero Unavailable Encounter Details Date Type Department Care Team ([facility] st Contact Info) Description 08/16/2024 Telephone [facility] [address] [place] [address] Tamar Tucker FNP [address] [place] [address] Social History Tobacco Use Types Packs/Day [...] 08/16/2024 11:27 AM EDT Is at the [facility] for labs, please have provider melanie the orders and resend as theywere not singed. documented in this encounter Plan of Treatment Not on file documented as of this encounter Visit Diagnoses Not on filedocumented in this encounter Additional Health Concerns Assessment Noted Time PHQ-9 Depression Total Score: 1 10/04/20 23 2:21 PM EST documented as of this encounter Care Teams Business Travel Consultant Relationship Specialty Start Date End Date Tamar Tucker FNP PCP - General Family Medicine 08/26/22 Tamar Tucker FNP Family Medicine 08/26/22 Heather Marrero [address] [place] [address] 07/26/23 documented as of this encounter
--- OUTSIDE RECORDS SUMMARY | 2025-08-29 11:40 | XMS_ITS | Encounter Summary ---
Author Organization [employer] Address [address] [place] [address] 7 [place] [address] Care Team Providers Care Bulb Planter Name Role Phone Tamar Tucker Primary Care Provider [phone] Tamar Tucker Unavailable [phone] Tyra Franks Unavailable [phone] Heather Marrero Unavailable Encounter Details Date Type Department Care Team (Late st Contact Info) Description 09/20/2022 Abstract [facility] [address] [place] [phone] Audelia Lange, RN [address] [place] [address] Social History Tobacco Use Types Packs/Day Years [...] on filedocumented in this encounter Care Teams Bulb Planter Relationship Specialty Start Date End Date Tamar Tucker FNP PCP - General Family Medicine 08/26/22 Tamar Tucker FNP Family Medicine 08/26/22 Tyra Franks [address] [place] [address] 07/17/23 07/02/24 Heather Marrero [address] [place] [address] 07/26/23 documented as of this encounter
--- OUTSIDE RECORDS SUMMARY | 2025-08-29 11:40 | XMS_ITS | Clinical Summary ---
Author Organization [employer] Address [address] [facility] 7t [place] [address] Care Team Providers Care Kick Press Setter Name Role Phone Tamar Tucker Primary Care Provider [phone] Tamar Tucker Unavailable [phone] Heather Marrero Unavailable Allergies Active Allergy Reactions [...] pain of left knee 06/28/2024 Overview (06/28/2024): [facility] April 2024 Assessment & Plan (06/28/2024 11:48 [...] 10/01/2012 Migraine headache 10/01/2012 Uterine leiomyoma 10/01/2012 Immunizations Immunization Administration Dates Next Due Influenza injectable quadriv alent IIV4 with preservative 07/30/2019,08/30/2018,07/13/2017,2015,08/14/2015,08/08/2014 Influenza injectable quadriv alent preservative free 10/04/2023,09/13/2022 PPD Test 09/29/2015 Tdap 03/19/2013 Social History Tobacco Use Types Packs/Day Years Used Date Smoking Tobacco: Never Smokeless Tobacco: Never Tobacco Cessation:Counseling Given: No Alcohol Use Standard Drinks/Week Comments Never 0 [...] Answer Date Recorded Patient Health Questionnaire-9 Score 0 03/21/2025 Patient Health Questionnaire-9 Score 0 03/21/2025 Last PHQ-9: Questionnaire Data Not on file 0 03/21/2025 Housing Stability Answer Date Recorded What is your housing situation today? I have berkley kalyani 12/18/[address] you li [...] Date Recorded Patient Health Questionnaire-2 Score 0 03/21/2025 Internet Access Answer Date Recorded Internet Access [...] 76 12/18/2024 9:13 AM EST Temperature 36.3 C (97.4 F) 08/05/2024 1:29 PM EDT Respiratory Rate - - Oxygen Saturation 98% 12/18/2024 9:13 AM EST Inhaled Oxygen Concentration - - Weight 82.1 kg (181 lb) 12/18/2024 9:13 AM EST Height 162.6 cm (5' 4 ) 12/18/2024 9:13 AM EST Body Mass Index 31.07 12/18/2024 9:13 AM EST Plan of Treatment Health Maintenance Due Date Last Done Comments CT Colonography 1958 Dental Oral Exam 1958 Dental Prophylaxis 1958 Dental X-Ray: Bitewings 1958 Dental X-Ray: Full Mouth 1958 FIT DNA/Cologuard 1958 FIT 1958 FOBT 1958 Sigmoidoscopy 1958 Pneumococcal Vaccine: 50+ Years (1 of 1 - PCV) 2008 Zoster Vaccines (1 of 2) 2008 DTaP/Tdap/Td Vaccines (2 - Td or Tdap) 03/19/2023 03/19/2013 Mammogram 09/23/2023 09/23/2022, 08/31, 09/23/2022, Additional history exists COVID-19 Vaccine ( season) 2025 09/29/2022, 08/13/2021, 07/23/2021 Influenza Vaccine (#1) 2025 , 09/13/2022, 07/30/2019, Additional history exists Alcohol/Substance Use Screening 10/11/2025 10/11/2024 Colonoscopy 11/25/2025 11/25/2020, 10/31, 03/27/2015, Additional history exists Colorectal Cancer Screening 11/25/2025 SDOH Screening 12/18/2025 12/18/2024 Depression Screening 03/21/2026 03/21/2025, 03/21/20 Tobacco Screening 03/21/2026 03/21/2025 HPV/Cotest 09/16/2027 09/13/2022 Pap Smear 09/16/2027 09/16/2022, [...] patient's age to complete this topic Meningococcal B Vaccine Aged Out No l onger eligible based on patient's age to complete [...] Procedure Name Priority Date/Time Associated Diagnosis Comments LIPID PANEL, STANDARD Routine 10/04/2023 2:06 PM EST Mixed hyperlipidemia MAMMOGRAPHY Routine 09/23/2022 PAP/HPV Routine 09/16/2022 THIN PREP PAP, WITH HPV, GENOTYPE IF HPV+ Routine 09/13/2022 10:30 AM EST COLONOSCOPY Routine 11/25/2020 HM HEPATITIS C ANTIBODY Routine 01/13/2017 from Last 3 Months or Most Recently Relevant to Health Maintenance Results * (ABNORMAL) Lipid Panel, Standard (10/04/2023 2:06 PM EST) [facility] Cholesterol, Total 235(H) (<200) MG/DL [facility] Triglyceride (mg/dL) in Serum/Plasma 114 (<150) MG/DL [facility] HDL Cholesterol 64 (>39) MG/DL [facility] LDL Cholesterol, Calculated 148(H) (0-130) MG/DL [facility] Non HDL Chol. (LDL+VLDL) 171(H) (<160) MG/DL [facility] Comment: Testing performed or reported by [facility], a Service of [facility], [address] [place] [address] Jose Crystal MD, Corset Maker [facility]# [id number] Blood Venous blood specimen / Unknown 10/04/2023 2:06 PM EST 10/04/2023 2:11 PM EST Tamar Tucker PACKER OPERATOR AUTOMATIC LAB BLOOD ORDERABLES Final Res ult Performing Organization Address [facility] Co de Phone Number [facility] [address] [place] [address] * Mammography (09/23/2022) [facility] Mammogram BIRADS 1 Anatomical Region Laterality Modality Other Historical Provider HEALTH MAINTENANCE Final Result * Pap Smear (09/16/2022) [facility] Pap smear NILM, HPV neg Historical Provider HEALTH MAINTENANCE Final Result * THIN PREP PAP, WITH HPV, GENOTYPE IF HPV+ (09/13/2022 10:30 AM EST) [facility] See Report CONVERTED LEGACY LABS 09/13/2022 10:3 0 AM EST Historical Provider LAB CYTOLOGY ORDERABLES F inal Result CONVERTED LEGACY LABS * Colonoscopy (11/25/2020) Colonoscopy Repeat 7 yrs Historical Provider HEALTH MAINTENANCE Final Result * Hepatitis C Antibody (01/13/2017) Hepatitis C Antibody Nonreactive Blood Historical Provider HEALTH MAINTENANCE Final Result from Last 3 Months or Most Recently Relevant to Health Maintenance Insurance [facility] [id number] [facility] [employer] [facility] UNIC[employer] Member Subscriber Plan / Payer (Ef fective 2023-Present) Name:Teresa Gramajo Relation to Subscriber:Spouse Name:Korina Gramajo Date of :1954 (Home) Address: [address] [place] [address] Payer ID:Not on file Type:Not on file Address: [address] [place], [place] DENTAL - [employer] Care Teams Kick Press Setter Relationship Specialty Start Date End Date Tamar Tucker FNP PCP - General Family Medicine 08/26/22 Tamar Tucker FNP Family Medicine 08/26/[address] [place] [address] 07/26/23
--- OUTSIDE RECORDS SUMMARY | 2025-08-29 11:40 | XMS_ITS | Encounter Summary ---
Author Organization [employer] Address [address] [facility] 7t [place] [address] Care Team Providers Care Mall Manager Name Role Phone Tamar Tucker Primary Care Provider [phone] Tamar Tucker Unavailable [phone] Heather Marrero Unavailable Encounter Details Date Type Department Care Team ([facility] st Contact Info) Description 03/12/2025 Telephone [facility] [address] [place] [address] Tamar Tucker FNP [address] [place] [address] Social History Tobacco Use Types Packs/Day [...] encounter Miscellaneous Notes * Telephone Encounter - Luther King LPN - 03/12/2025 4:10 PM EDT Spoke with pt, gastro is making appt for colonoscopy, pt then had question about PT advised pt pt referral was approved in July for [facility] * Telephone Encounter - Elena Lopezbatshevajohn - 03/12/2025 3:21 PM EDT Patient is calling because they met with a gastro surgeon and they wanted the patient to get a colonoscopy, please advise patient. Call back # [phone] documented in this encounter Plan of Treatment Not on file documented as of this encounter Visit Diagnoses Not on filedocumented in this encounter Additional Health Concerns Assessment Noted Time PHQ-9 Depression Total Score: 1 10/04/20 23 2:21 PM EST documented as of this encounter Care Teams Mall Manager Relationship Specialty Start Date End Date Tamar Tucker FNP PCP - General Family Medicine 08/26/22 Tamar Tucker FNP Family Medicine 08/26/22 Heather Marrero [address] [place] [address] 07/26/23 documented as of this encounter
--- OUTSIDE RECORDS SUMMARY | 2025-08-29 11:41 | XMS_ITS | Data Portability ---
Author Organization [facility], [address] Address [address] [place] [address] Care Team Providers Care Master Scheduler Name Role Phone [facility] Care Provider Assessment No assessment recorded. Plan of Treatment Reminders Order Date Submit Date Provider Last Modified By Organization Details Last Modified Time Details Appointments None recorded. Lab SARS CoV 2 (COVID-19) Ag, QL, IA, upper respiratory specimen 2023 [facility] [id number], [address] [place] [address], [id number], 4 13:32:53 rapid flu (A+B) 2023 024 [facility] [id number], [address] [place], [address], 4 13:32:36 Referral None recorded. Procedures None recorded. Surgeries None recorded. Imaging None recorded. Medication Orders fluticasone propionate 50 mcg/actuati on nasal spray,suspe nsion 2023 024 [facility], [address] [place], [address], 4 13:31:56 Patient TargetsNo targets recorded. Patient InstructionsNo instructions recorded. Reason for Referral None Reported. Results Created Date Observation Date Name Description Value Unit Range Abnormal Flag Note LastModifiedBy Organization Detail LastModifiedTime 12/20/1912/20/2023 rapid flu (A+B) Unknown Analyte negati ve Not Available [facility] [address] [place], [address], 12/20/2023 13:17:57 12/20/19 24 12/20/2023 rapid flu (A+B) Unknown Analyte negati ve Not Available [address] [address] [place], [address], 12/20/2023 13:17:57 12/20/19 24 12/20/2023 rapid flu (A+B) Unknown Analyte yes Not Available 2099 [address] [place], [address], 12/20/2023 13:17:57 12/20/19 24 12/20/2023 SARS CoV 2 (COVI D-19) Ag, QL, IA, upper respi rator y speci men Unknown Analyte negati ve Not Available [facility] [address] [place], [address], 12/20/2023 13:16:05 12/20/19 24 12/20/2023 SARS CoV 2 (COVI D-19) Ag, QL, IA, upper respi rator y speci men Unknown Analyte yes Not Available [facility] [address] [place], [address], 12/20/2023 13:16:05 Result Notes None recorded. Problems Name Problem SNOMED Code Status Onset Date Resolution Date Notes Provider Name and Address Organization Details Recorded Time Hypothyroidism 85042733 Active RUI Chavarria - [facility] 4 13:15:03 Hypercholestero lemia 90209737 Active RUI Chavarria - [facility] 4 13:15:11 Problem Notes [...] propionate 50 mcg/actuatio n nasal spray,suspen wilbur [place] 2 sprays every day by intranasal route [...] blood by Pulse oximetry Heart rate Systolic And Diastolic Provider Name and Address Organization Details Last Updated DateTime 162.56 cm 27.5 kg/m2 91372.7 8 g 100.6 [degF] 18 /min 99 % 99 % 81 /min 132/84 mm[Hg] Hope FABIAN - [facility] 13:17:51 Social History Question Answer Notes LastModified by Organizat ion Details LastModified Time Tobacco Smoking Status Never Smoker Hope tinoco PA [facility] 12/20/2023 13:15:28 Have You Had A Flu Shot This Season? Yes Information not available 12/20/2023 What Was The Date Of Your Most Recent Tobacco Screening? 12/20/2023 Information not available 12/20/2023 Have You Recently Traveled Abroad? Yes [place], Returned 12/05 [email or web address] Information not available 12/20/2023 Sex: Unknown Functional Status Question Answer Note LastModified by Organizat ion Details LastModified Time Do you use any illicit or recreational drugs? No Information not available 12/20/2023 Do you or have you ever used any other forms of tobacco or nicotine? No [email or web address] Information not available 12/20/2023 What is your level of alcohol consumption? None Information not available 12/20/2023 Mental Status None recorded. Family History Relationship Description Onset Age of this Age Resolved Age Notes LastModified by Organization Details LastModified Time Father No current problems or disability Not available 12/20 13:15:15 Mother No current problems or disability Not available 12/20 13:15:15 Medical History No medical history recorded. Gynecological History Statement/Question Response Is there any chance of ? No LMP N/A Obstetrics History GPAL:G 0 P 0 0 0 0 Past Encounters Encounter ID Performer Location Encounter Start Date Encounter Closed Date Diagnosis/Indication Diagnosis SNOMED-CT Code Diagnosis ICD10 Code Diagnosis IMO Codes Diagnosis Note [id number] [address] [place] [address] 05/25/2020 19:23:30 05/25/2020 19:56:49 [id number] [address] [place] [address] 07/28/2018 13:24:28 07/28/2018 14:03:46 [id number] RUI Capps [address] [place] [address] 12/20/2023 13:03:41 12/20/2023 13:36:26 Influenza-like illness 25954370 B34.9 Patient presented with symptoms of upper [...] Member ID Guarantor Name 12/20/2023 1 AI [id number] Korina Gramajo [id number] Teresa Gramajo 09/28/2022 [facility]MSI [facility] Med Generic (Move To Hold) [[id number]] Teresa Gramajo 09/28/2022 [employer] WORK[employer] COMP [facility] Med Generic (Move To Hold) [[id number]] Teresa [place] 09/28/2022 GENERIC WORKER'S COMP (MOVED TO HOLD) [facility] Med Generic (Move To Hold) [[id number]] Teresa Gramajo Notes Date Note Type Note Provider Name and Address Organization Details Recorded Time 12/20/2023 text/html 63 y/o female with cough, congestion, low grade fevers for the past 5 days. RUI Capps [address] [place], [address], [place] - [facility] 12/20/2023 13:34:03 OBGyn Episode No OBEpisode recorded.
== END 2025-08-29 11:28 | disposition home or self-care (01) ==
LOC: HO.HGI 10:21
PROVIDERS: PCP Student in an Organized Health Care Education/Training Program; Visit Provider Nurse Practitioner Family
DX: Z01.818 Encounter for other preprocedural examination (principal); Z12.11 Encounter for screening for malignant neoplasm of colon; K57.32 Diverticulitis of large intestine without perforation or abscess without bleeding
CPT/HCPCS: S0285